=== PATIENT | female | born 1935 | race Hispanic/Latino ===

== ENCOUNTER 2016-10-05 16:31 | Emergency (ER) | payer MEDICARE ==
[2016-10-05 16:40] VITALS: BP 156/65
--- OUTSIDE RECORDS SUMMARY | 2016-10-05 17:15 | XMS REPORT | Continuity of Care Document ---
:1935 Author Organization ([facility]) Address [address] [place] [address] Phone [phone] Care Team Providers Name Role Phone Hao Varma Primary Care Provider [phone] Source Comments This disclosure is being made pursuant to the Care Everywhere program, applicable federal and state laws, and may not contain all informaitonavailable regarding this patient. ([facility]) Active Allergies and Adverse Reactions Allergen Noted Date Severity Reactions Comments Acetaminophen Pruritus,Dizziness Hydrocodone Pruritus,Dizziness Oxycodone Pruritus,Dizziness Penicillins Urticaria (Hives) Polysaccharide Iron Complex Urticaria (Hives) Tramadol Hcl Pruritus,Nausea & w/o rash. Vomiting,Dizziness Current Medications Prescription Sig. Disp. Refills Start Date End Date Status allopurinol 100 mg tablet take 1 tablet by 10/25/2013 Active oral route 3 times every day levothyroxine 50 mcg TK 1 T PO QD 1 05/13/2016 Active tablet torsemide 20 mg tablet 05/15/2016 Active amLODIPine 10 mg tablet take 1 tablet by 10/25/2013 Active oral route every day glimepiride 4 mg tablet take 1 tablet by 10/25/2013 Active ORAL route every day hydrALAZINE 25 mg tablet TK 1 T PO TID 5 05/19/2016 Active Active Problems Problem Noted Date Type II or unspecified type diabetes mellitus without mention of 07/19/2016 complication, not stated as uncontrolled Renal failure 07/19/2016 Rheumatoid arthritis 07/19/2016 Thyroid disease 07/19/2016 Essential hypertension 07/19/2016 Pain in joint, lower leg 10/10/2007 Pain in joint, multiple sites 10/05/2007 Most Recent Encounters Date Type Specialty Providers Description 07/15/2016 Hospital Encounter Radiology Robin Christianson Y, Dx: Hip pain, MD bilateral 07/15/2016 Office Visit Orthopaedic Imtiaz Leyva, Dx: Hip pain, bilateral (Primary Dx) Immunizations Name Dates Previously Given Next Due Influenza, unspecified 06/09/2007 Pneumococcal, unspecified 06/09/2006 Social History Tobacco Use Types Packs/Day Years Used Date Never Smoker Smokeless Tobacco: Never Used Last Filed Vital Signs Vital Sign Reading Time Taken Blood Pressure 150/60 12/28/2007 10:16 AM CDT Pulse 60 12/28/2007 10:16 AM CDT Temperature 35.9 C (96.6 F) 07/15/2016 12:23 PM [employer] Respiratory Rate - - Height 1.524 m (5') 07/15/2016 12:23 PM [employer] Weight 86.696 kg (191 lb 2.1 oz) 12/28/2007 10:16 AM CDT Body Mass Index 37.33 12/28/2007 10:16 AM CDT Oxygen Saturation - - Plan of Care Health Maintenance Due Date Last Done Comments Hepatitis B Vaccine (1 of 3 - Primary Series) 1935 Tdap Vaccine 1946 DIABETIC: Cholesterol 10/25/1951 Diabetic: Hdl 10/25/1951 DIABETIC: Hemoglobin A1C 10/25/1951 Diabetic: Ldl 10/25/1951 DIABETIC: Microalbumin 10/25/1951 DIABETIC: Triglycerides 10/25/1951 Td Vaccine 10/25/1951 Colonoscopy 1983 Zoster Vaccine 1993 Osteoporosis Screening (DXA Bone Density) 1998 Pneumococcal Vaccine (1 of 2 - PCV13) 1998 Influenza Vaccine: Seasonal (#1) 03/09/2016 06/09/2007 DIABETIC: Foot Exam 07/19/2016 DIABETIC: Retinal Eye Exam 07/19/2016 Results from Last 3 Months PELVIS LOW AP, HIP AP,LAT& LAUEN BILAT (07/15/2016 12:18 PM) Narrative Procedure: PELVIS LOW AP, HIP AP,LAT & LAUEN BILAT Clinical Indication: Bilateral hip pain Comparison: None. Findings / Impression: Severe uniform joint space narrowing of the right hip with osteophyte formation possibly secondary to inflammatory arthritis of the right hip. Severe superior joint space narrowing of the left hip, bone on bone, with osteophyte formation. Degenerative changes of the bilateral SI joints and pubic symphysis. Vascular calcifications. Procedure Note Mauricio, Incoming Imaging Results - Davina Jul 16, 2016 8:19 AM [employer] Procedure: PELVIS LOW AP, HIP AP,LAT & LAUEN BILAT Clinical Indication: Bilateral hip pain Comparison: None. Findings / Impression: Severe uniform joint space narrowing of the right hip with osteophyte formation possibly secondary to inflammatory arthritis of the right hip. Severe superior joint space narrowing of the left hip, bone on bone, with osteophyte formation. Degenerative changes of the bilateral SI joints and pubic symphysis. Vascular calcifications.
--- NOTE | 2016-10-05 17:28 | ERNOTE ---
Medical Problem HPI - Narrative Date of Service: 10/05/16 - General Chief Complaint: General Assessment Time Seen by Provider: 10/05/16 17:06 Source: patient, RN notes reviewed, old records Exam Limitations: no limitations - Immun/Allergies/Home Medications Immunizations: IMMUNIZATION HX Immunizations Up to Date Yes History of Influenza Vaccine Yes Hx Pneumococcal Vaccination Yes Allergies/Adverse Reactions: Allergies milk Allergy (Mild, Verified 10/05/16 16:40) Nausea nausea, diarrhea, abd pain erythromycin base [Erythromycin Base] Allergy (Verified 10/05/16 16:40) iron Allergy (Verified 10/05/16 16:40) morphine Allergy (Verified 10/05/16 16:40) Penicillins Allergy (Verified 10/05/16 16:40) cholesterol meds Allergy (Uncoded 10/05/16 16:40) Home Medications: HOME MEDICATIONS Allopurinol [Zyloprim] 100 mg PO BID 05/05/14 [Last Taken 05/05/16] Glimepiride [Amaryl] 4 mg PO BID 05/05/14 [Last Taken 05/05/16] amLODIPine BESYLATE [Norvasc] 10 mg PO DAILY 05/05/14 [Last Taken 05/05/16] Torsemide [Demadex] 60 mg PO DAILY 04/30/16 [Last Taken 05/05/16] Acetaminophen [Tylenol] 650 mg PO Q6H PRN #0 tablet 05/01/16 [Last Taken Unknown ] Hydralazine HCl 25 mg PO TID 05/05/16 [Last Taken 05/05/16] Bumetanide [Bumex] 1 mg PO DAILY 10/05/16 [Last Taken Unknown] Levothyroxine Sodium [Levo-T] 50 mcg PO DAILY 10/05/16 [Last Taken Unknown] Metolazone [Zaroxolyn] 2.5 mg PO DAILY 10/05/16 [Last Taken Unknown] - History of Present History Narrative: 80 y/o female to ED by private vehicle for increased edema in her lower legs, feet and hands. She contacted her PCP's office and was instructed to come here because he is out of the office today. She denies any chest pain or breathing difficulties. She has chronic renal disease and is already taking 3 different diuretics. Date (Duration): 10/05/16 Review of Systems - Review of Systems Constitutional: Absent: fever, chills, weakness, fatigue, malaise EYE: Present: no symptoms reported ENT: Present: no symptoms reported Respiratory: Absent: shortness of breath, cough Cardiology: Present: edema. Absent: chest pain, palpitations, syncope Gastrointestinal/Abdominal: Present: no symptoms reported Genitourinary: Absent: decreased urinary output Musculoskeletal: Present: muscle pain, joint pain Skin: Absent: lesions, change in color Neurological: Absent: headache, dizziness/light-headedness Endocrine: Present: no symptoms reported Hematologic/Lymphatic: Present: no symptoms reported Psych: Present: no symptoms reported - Patient's Past Medical History Patient History - Medical: Anemia, Arthritis, Diabetes Type 2, Hypothyroidism, Obesity, Osteoarthritis, Renal Disease, Renal Failure Patient History - Cardiac/Respiratory: Hypertension, Hyperlipidemia Patient History - Cancer: No Hx of Cancer Patient History - Surgical Procedures: Cholecystectomy Patient History - Other: None LMP (females 10-50): Menopausal - Family History Father Family History - Medical: , Diabetes Type 2 Family History - Cardiac/Respiratory: No pertinent hx Mother Family History - Medical: , No pertinent hx Family History - Cardiac/Respiratory: No pertinent hx - Social History Living Situations: home Abuse History: No History of abuse Psych History: No pertinent hx Smoking Status: Former smoker Alcohol Use: none Drug Use: none - Immunizations Immunizations Up to Date: Yes Hx Pneumococcal Vaccination: Yes History of Influenza Vaccine: Yes Physical Exam - Physical Exam General Appearance: Present: wd/wn, alert, no apparent distress, obese Neck: Present: normal inspection, nontender, supple Respiratory: Present: no respiratory distress, normal breath sounds, no accessory muscle use, lungs clear Cardiovascular/Chest: Present: regular rate, rhythm, normal peripheral pulses, systolic murmur Extremity Exam: Present: non-tender, pedal edema, extremity edema - hands, feet and lower legs with significant edema - nontender to palpation, no redness or heat present Neurological Exam: Present: alert, oriented, normal mood/affect Skin Exam: Present: normal color, warm/dry ED Progress - Vital Signs Patient's Vital Signs:: I have reviewed the patient's vital signs. Vital Signs: Vital Signs 10/05/16 16:35 Temperature 35.7 C L Pulse Rate 69 Respiratory 12 Rate Blood Pressure 156/65 O2 Sat by Pulse 98 Oximetry - Progress/Reassessment Chief Complaint: General Assessment Progress:: Unchanged Plan - Plan Plan: Patient instructed to contact her PCP tomorrow regarding her edema as she is currently not experiencing any other symptoms that would warrant treating this in the ED Departure - Departure Clinical Impression: Edema extremities Disposition: Home Follow Up Needed Condition: Stable Instructions: Edema, [id number] Additional Instructions: Continue your current medications Contact Dr. Varma tomorrow Referrals: Hao Varma MD [Primary Care Provider] -
== END 2016-10-05 17:15 | disposition home or self-care (01) ==
LOC: ER 16:31
DX: R60.0 Localized edema (principal); I10 Essential (primary) hypertension; N28.9 Disorder of kidney and ureter, unspecified; E11.9 Type 2 diabetes mellitus without complications

== ENCOUNTER 2016-10-07 11:30 | Observation (INO) | payer MEDICARE ==
--- OUTSIDE RECORDS SUMMARY | 2016-10-07 11:37 | XMS REPORT | Continuity of Care Document ---
:1935 Author Organization [facility] ([facility]) Address [address] [place] [address] Phone [phone] Care Team Providers Name Role Phone Hao Varma Primary Care Provider [phone] Source Comments This disclosure is being made pursuant to the Care Everywhere program, applicable federal and state laws, and may not contain all informaitonavailable regarding this patient.[facility] ([facility]) Active Allergies and Adverse Reactions Allergen Noted [...] 35.9 C (96.6 F) 07/15/2016 12:23 PM 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
[2016-10-07] MEDS ORDERED: ACETAMINOPHEN 325 MG TABLET PO PRN (11:51)
[2016-10-07 12:19] LABS: Hematocrit 36.8 % (37.0-47.0); Hemoglobin 11.9 gm/dL (12.5-16.0); Mean Cell Volume 97.6 fl (78-100); Mean Corpuscular Hemoglobin 31.6 pg (27-31); Mean Corpuscular Hgb Conc 32.3 g/dl (32-36); Mean Platelet Volume 12.7 fl (6.0-9.5); Neutrophil # 2.8 K/mm3 (1.3-6.0); Neutrophil % 50.6 % (42-75.0); Platelet Count 166 K/mm3 (150-450); Red Blood Count 3.77 M/mm3 (4.2-5.4); Red Cell Distribution Width 14.7 % (11.5-14.0); White Blood Count 5.6 K/mm3 (4.0-10.5)
[2016-10-07] MEDS ORDERED: FUROSEMIDE 10 MG/ML VIAL IV ONE (12:30)
[2016-10-07 12:33] LABS: Troponin I Less than 0.017 ng/ml (0.00-0.10)
[2016-10-07 12:38] LABS: ALT 17 U/L (19-67); AST 22 U/L (0-48); Albumin * 2.1 gm/dl (3.4-5.0); Alkaline Phosphatase * 82 U/L (50-170); Anion Gap 15.1 mmol/L (6.8-13.8); BNP * 267 pg/mL (5-550); BUN/Creatinine Ratio 15.3 (9.0-21.6); Bilirubin, Total 0.2 mg/dL (0.0-1.1); Blood Urea Nitrogen 40 mg/dL (3-23); CK Total * 52 U/L (0-259); Ca. Corrected For Albumin 9.8 mg/dL (8.4-10.2); Calcium * 8.6 mg/dL (7.9-10.9); Carbon Dioxide 22.7 mmol/L (24-32.6); Chloride 105 mmol/L (97-106); Glucose * 120 mg/dL (70-110); Potassium 3.8 mmol/L (3.4-4.6); Sodium 139 mmol/L (132-142); Total Protein 6.1 gm/dL (6.2-8.2)
[2016-10-07 13:07] LABS: TSH * 17.086 uIU/mL (0.358-3.74)
[2016-10-07] MEDS: FUROSEMIDE 80 MG TABLET PO SCH (13:44)
[2016-10-07] MEDS: hydrALAZINE HCL 25 MG TABLET PO SCH ×2 (13:44→20:31)
[2016-10-07 14:16] LABS: Urine Bilirubin Negative (NEGATIVE); Urine Ketone Negative (NEGATIVE); Urine Nitrite Negative (NEGATIVE); Urine Protein >=300 mg/dL (NEGATIVE); Urine Urobilinogen Normal (NORMAL)
[2016-10-07 14:26] LABS: Urine Appearance Clear; Urine Bacteria None Seen; Urine Blood 10 /ul (NEGATIVE); Urine Color Pale Yellow; Urine RBC None Seen /hpf (0-5); Urine WBC None Seen /hpf (0-5)
[2016-10-07] MEDS: GLIMEPIRIDE 4 MG TABLET PO SCH (18:01)
[2016-10-07] MEDS: ALLOPURINOL 100 MG TABLET PO SCH (20:31)
[2016-10-08] MEDS: hydrALAZINE HCL 25 MG TABLET PO SCH ×2 (04:37→13:39)
[2016-10-08 06:23] LABS: Albumin * 1.8 gm/dl (3.4-5.0); Anion Gap 12.7 mmol/L (6.8-13.8); Bilirubin, Total 0.2 mg/dL (0.0-1.1); Ca. Corrected For Albumin 9.6 mg/dL (8.4-10.2); Calcium * 8.2 mg/dL (7.9-10.9); Potassium 3.7 mmol/L (3.4-4.6); Total Protein 5.6 gm/dL (6.2-8.2)
[2016-10-08] MEDS ORDERED: LEVOTHYROXINE SODIUM 100 MCG TABLET PO SCH (07:00)
[2016-10-08] MEDS ORDERED: LEVOTHYROXINE SODIUM 50 MCG TABLET PO SCH (07:00)
[2016-10-08] MEDS: GLIMEPIRIDE 4 MG TABLET PO SCH ×2 (07:28→18:01)
[2016-10-08] MEDS: FUROSEMIDE 80 MG TABLET PO SCH (08:09)
[2016-10-08] MEDS: ALLOPURINOL 100 MG TABLET PO SCH (08:10)
[2016-10-08] MEDS ORDERED: ALBUMIN HUMAN 12.5 G in Premix Bag 1 BAG IV ONE (08:43)
[2016-10-08] MEDS ORDERED: FUROSEMIDE 10 MG/ML VIAL IV ONE (08:44)
[2016-10-08 08:46] LABS: Hematocrit 34.7 % (37.0-47.0); Hemoglobin 11.5 gm/dL (12.5-16.0); Mean Cell Volume 95.6 fl (78-100); Mean Corpuscular Hemoglobin 31.7 pg (27-31); Mean Corpuscular Hgb Conc 33.1 g/dl (32-36); Neutrophil # 3.3 K/mm3 (1.3-6.0); Neutrophil % 55.2 % (42-75.0); Platelet Count 255 K/mm3 (150-450); Red Blood Count 3.63 M/mm3 (4.2-5.4); Red Cell Distribution Width 14.5 % (11.5-14.0); White Blood Count 6.1 K/mm3 (4.0-10.5)
[2016-10-08] MEDS ORDERED: METOLAZONE 5 MG TABLET PO SCH (09:00)
[2016-10-08] MEDS ORDERED: METOLAZONE 2.5 MG TABLET PO SCH (09:00)
[2016-10-08] MEDS ORDERED: TORSEMIDE 20 MG TABLET PO SCH (09:00)
[2016-10-08] MEDS ORDERED: amLODIPine BESYLATE 10 MG TABLET PO SCH (09:00)
--- NOTE | 2016-10-08 09:02 | DS ---
(1) CKD (chronic kidney disease) Problem: Chronic Qualifiers: Chronic kidney disease stage: stage 4 (severe) Qualified Code(s): N18.4 - Chronic kidney disease, stage 4 (severe) (2) Fibromyalgia Problem: Chronic (3) Hypothyroidism Problem: Chronic (4) Hypoalbuminemia Problem: Chronic (5) Diabetes mellitus type 2 in obese Problem: Chronic Description of Stay: 80-year-old [place] descent female was admitted because of generalized swelling involving mostly on her legs. She is known nephrotic syndrome with massive proteinuria. Chest x-ray and Bnp did not show CHF.she was given IV Lasix and metolazone she diuresed well and lost more than 5 pounds over night. I will give her some IV albumin and give another dose of IV Lasix and then she will be discharged and follow up in 1 week. She developed low-grade fever 37.9 I will obtain blood culture and urine tests and this will be treated accordingly Procedures Performed: none Discharge Disposition: Home self care Disposition: Home self-care Condition: Undetermined Discharge Activity: Activity as tolerated Discharge Diet: Consistent carbs Referrals: Hao Varma MD [Primary Care Provider] - Additional Patient Instructions (free text): Follow-up with Dr. Varma in 1 week Prescriptions (Any new or edited meds): Furosemide [Lasix] 80 mg PO DAILY #90 tablet Levothyroxine Sodium [Synthroid] 100 mcg PO DAILY@0700 #90 tablet Complete Home Medications List: Complete Home Medication List: Allopurinol [Zyloprim] 100 mg PO BID 05/05/14 Glimepiride [Amaryl] 4 mg PO DAILY 05/05/14 amLODIPine BESYLATE [Norvasc] 10 mg PO DAILY 05/05/14 Acetaminophen [Tylenol] 650 mg PO Q6H PRN #0 tablet 05/01/16 Hydralazine HCl 25 mg PO TID 05/05/16 Levothyroxine Sodium [Levo-T] 75 mcg PO DAILY 10/05/16 Metolazone [Zaroxolyn] 2.5 mg PO 2XW 10/05/16 Allopurinol [Zyloprim] 100 mg PO BID tablet 10/08/16 Furosemide [Lasix] 80 mg PO DAILY #90 tablet 10/08/16 Glimepiride [Amaryl] 4 mg PO BIDAC tablet 10/08/16 Levothyroxine Sodium [Synthroid] 100 mcg PO DAILY@0700 #90 tablet 10/08/16 Metolazone [Zaroxolyn] 5 mg PO DAILY #0 tablet 10/08/16
[2016-10-08 11:10] LABS: Urine Bilirubin Negative (NEGATIVE); Urine Blood 50 /ul (NEGATIVE); Urine Ketone Negative (NEGATIVE); Urine Nitrite Negative (NEGATIVE); Urine Protein >=300 mg/dL (NEGATIVE); Urine Urobilinogen Normal (NORMAL)
[2016-10-08] MEDS ORDERED: CLONIDINE HCL 0.2 MG TABLET PO STA (11:12)
[2016-10-08] MEDS ORDERED: ENALAPRIL MALEATE 20 MG TABLET PO SCH (11:15)
[2016-10-08 11:17] LABS: Urine Appearance Clear; Urine Bacteria TRACE; Urine Color Yellow
[2016-10-08 13:53] VITALS: BP 171/50
[2016-10-08 22:08] LABS: Total Protein Urine 344.1 mg/dL (0-12)
[2016-10-10 23:44] LABS: Alpha-1-Globulin 0.3 g/dL (0.2-0.3); Gamma Globulins 0.3 g/dL (0.8-1.7); Lambda Light Chain 56 mg/dL (91-240)
== END 2016-10-08 20:10 | disposition home or self-care (01) ==
LOC: MS 11:30
PROVIDERS: ADMIT Internal Medicine; ATTEND Internal Medicine
DX: I12.9 Hypertensive chronic kidney disease with stage 1 through stage 4 chronic kidney disease, or unspecified chronic kidney disease (principal); R60.1 Generalized edema; E03.8 Other specified hypothyroidism; I50.9 Heart failure, unspecified; M79.7 Fibromyalgia; E88.09 Other disorders of plasma-protein metabolism, not elsewhere classified; E11.9 Type 2 diabetes mellitus without complications; N04.9 Nephrotic syndrome with unspecified morphologic changes; N18.4 Chronic kidney disease, stage 4 (severe)
CPT/HCPCS: 36415; 71010; 71020; 80053; 81001; 82550; 82553; 83880; 83883; 84156; 84443; 84484; 85025; 86255; 87040; 93005; 96365; 96366; 96375; 97161; 97165; G0378; G0379; G8978; G8979; G8980; G8987; G8988; G8989

== ENCOUNTER 2016-12-30 23:13 | Emergency (ER) | payer MEDICARE ==
--- NOTE | 2016-12-30 23:29 | ERNOTE ---
Chest Pain/Cardiac HPI Chief Complaint: Palpitations Time Seen by Provider: 12/30/16 23:22 Source: patient, family Exam Limitations: no limitations Immunizations: IMMUNIZATION HX Immunizations Up to Date Yes History of Influenza Vaccine No Hx Pneumococcal Vaccination No Allergies/Adverse Reactions: Allergies milk Allergy (Mild, Verified 12/30/16 23:25) Nausea nausea, diarrhea, abd pain erythromycin base [Erythromycin Base] Allergy (Verified 12/30/16 23:25) iron Allergy (Verified 12/30/16 23:25) morphine Allergy (Verified 12/30/16 23:25) Penicillins Allergy (Verified 12/30/16 23:25) cholesterol meds Allergy (Uncoded 12/30/16 23:25) Home Medications: HOME MEDICATIONS hydrALAZINE HCL [Hydralazine HCl] 50 mg PO TID 05/05/16 [Last Taken 05/05/16] Levothyroxine Sodium [Levo-T] 150 mcg PO DAILY 10/05/16 [Last Taken Unknown] Allopurinol [Zyloprim] 100 mg PO BID tablet 10/08/16 [Last Taken Unknown] Calcitriol [Rocaltrol] 0.25 mcg PO DAILY 12/30/16 [Last Taken Unknown] Cholecalciferol [Vitamin D] 4,000 unit PO DAILY 12/30/16 [Last Taken Unknown] Furosemide [Lasix] 80 mg PO DAILY 12/30/16 [Last Taken Unknown] Glimepiride [Amaryl] 4 mg PO DAILY 12/30/16 [Last Taken Unknown] Levothyroxine Sodium [Synthroid] 100 mcg PO DAILY 12/30/16 [Last Taken Unknown] Loratadine [Claritin] 10 mg PO DAILY 12/30/16 [Last Taken Unknown] Narrative: Pt states she had onset of pounding in her chest earlier this evening. Denies chest pain Timing: constant, getting worse Severity/Quality: moderate Location: left chest Activities at Onset: none Review of Systems - Review of Systems Constitutional: Present: fatigue EYE: Present: no symptoms reported ENT: Present: no symptoms reported Respiratory: Absent: shortness of breath Cardiology: Absent: chest pain Gastrointestinal/Abdominal: Absent: nausea, vomiting Genitourinary: Present: no symptoms reported Musculoskeletal: Present: no symptoms reported Skin: Present: no symptoms reported Neurological: Present: no symptoms reported Endocrine: Present: no symptoms reported Hematologic/Lymphatic: Present: no symptoms reported Psych: Present: no symptoms reported - Patient's Past Medical History Patient History - Medical: Anemia, Arthritis, Diabetes Type 2, Hypothyroidism, Obesity, Osteoarthritis, Renal Disease, Renal Failure Patient History - Cardiac/Respiratory: Atrial Fibrillation, CHF, Hypertension, Hyperlipidemia Patient History - Cancer: No Hx of Cancer Patient History - Surgical Procedures: Cholecystectomy Patient History - Other: None - Family History Father Family History - Medical: , Diabetes Type 2 Family History - Cardiac/Respiratory: No pertinent hx Mother Family History - Medical: , No pertinent hx Family History - Cardiac/Respiratory: No pertinent hx - Social History Living Situations: home Abuse History: No History of abuse Psych History: No pertinent hx Smoking Status: Never smoker Alcohol Use: none Drug Use: none - Immunizations Immunizations Up to Date: Yes Hx Pneumococcal Vaccination: No History of Influenza Vaccine: No Physical Exam - Physical Exam General Appearance: Present: wd/wn, alert, mild distress Ears, Nose, Throat: Present: normal ENT inspection Neck: Present: normal inspection, nontender, supple Respiratory: Present: no respiratory distress, normal breath sounds, no accessory muscle use, lungs clear Cardiovascular/Chest: Present: regular rate, rhythm, no murmur, normal peripheral pulses Gastrointestinal/Abdominal: Present: normal bowel sounds, nontender, nondistended, soft Extremity Exam: Present: normal inspection, non-tender, normal range of motion, no edema Neurological Exam: Present: alert, oriented, normal mood/affect Skin Exam: Present: normal color, warm/dry Lymphatic Exam: Present: no adenopathy ED Progress - Results and Orders Patient's Lab Results:: I have reviewed the patient's lab results. Results and Orders: Laboratory Tests 12/30/16 12/30/16 23:28 23:28 WBC 14.6 H Hgb 10.4 L Hct 30.8 L Plt Count 301 Sodium 138 Potassium 4.0 Chloride 101 Carbon Dioxide 20.0 L Anion Gap 21.0 H BUN 82 H Creatinine 2.85 H D Est GFR (Non-Af Amer) 17 L BUN/Creatinine Ratio 28.8 H Random Glucose 226 H Calcium 8.5 Total Bilirubin 0.3 AST 36 ALT 20 Alkaline Phosphatase 92 Troponin I 0.048 Total Protein 6.5 Albumin 2.7 L Laboratory Tests 12/31/16 12/31/16 01:26 03:15 Troponin I 0.066 0.057 - Vital Signs Patient's Vital Signs:: I have reviewed the patient's vital signs. Vital Signs: Vital Signs 12/30/16 23:18 Temperature 36.7 C Pulse Rate 84 Respiratory 13 Rate Blood Pressure 220/73 O2 Sat by Pulse 96 Oximetry - EKG EKG: NSR EKG read: Interp. by me EKG Comments: mild lateral ST depression. - X-Ray X-Ray #1 X-Ray: chest Interpretation: Interp. by me X-ray Comments: nothing acute - Progress/Reassessment Chief Complaint: Palpitations Progress:: Improved Progress Note-Subjective: 12/31/16 01:26 Discussed results with patient, non-specific EKG changes and troponin that his not completely negative. I explained repeat EKG and Ti and the reasons why I ordered them. Pt would like to go home as she is feeling better. I told her we would consider sending her home after looking at the EKG and Ti. 12/31/16 03:00 EKG and Ti reviewed. EKG showed decreased ST depression but some isolated ST elevation in V1. Spoke with patient and she agrees to stay for OBS. Spoke with [facility] and she refuses to admit the patient. Ordered repeat troponin #2 12/31/16 04:00 Troponin decreasing, discussed discharge with patient and family. Encouraged her to see her PCP about her BP to make sure it is staying controlled. Departure - Departure Clinical Impression: Palpitations Hypertension Qualifiers: Hypertension type: essential hypertension Qualified Code(s): I10 - Essential ( primary) hypertension Disposition: Home Follow Up Needed Condition: Good Instructions: Hypertension, [id number] Additional Instructions: See Dr. Varma for further follow up on your blood pressure. Return to ER as needed Referrals: Hao Varma MD [Primary Care Provider] -
[2016-12-30 23:34] LABS: Hematocrit 30.8 % (37.0-47.0); Hemoglobin 10.4 gm/dL (12.5-16.0); Mean Corpuscular Hemoglobin 32.4 pg (27-31); Mean Corpuscular Hgb Conc 33.8 g/dl (32-36); Mean Platelet Volume 12.3 fl (6.0-9.5); Neutrophil # 9.8 K/mm3 (1.3-6.0); Neutrophil % 66.6 % (42-75.0); Platelet Count 301 K/mm3 (150-450); Red Blood Count 3.21 M/mm3 (4.2-5.4); Red Cell Distribution Width 14.5 % (11.5-14.0); White Blood Count 14.6 K/mm3 (4.0-10.5)
[2016-12-30 23:54] LABS: Albumin * 2.7 gm/dl (3.4-5.0); BUN/Creatinine Ratio 28.8 (9.0-21.6); Bilirubin, Total 0.3 mg/dL (0.0-1.1); Ca. Corrected For Albumin 9.2 mg/dL (8.4-10.2); Calcium * 8.5 mg/dL (7.9-10.9); Total Protein 6.5 gm/dL (6.2-8.2); Troponin I 0.048 ng/ml (0.00-0.10)
[2016-12-31] MEDS ORDERED: hydrALAZINE HCL 20 MG/ML VIAL IV ONE (00:17)
[2016-12-31 04:34] VITALS: BP 180/58
== END 2016-12-31 04:31 | disposition home or self-care (01) ==
LOC: ER 23:13
DX: R00.2 Palpitations (principal); I10 Essential (primary) hypertension; E11.9 Type 2 diabetes mellitus without complications; E03.9 Hypothyroidism, unspecified; Z79.01 Long term (current) use of anticoagulants; I50.9 Heart failure, unspecified; E78.5 Hyperlipidemia, unspecified

== ENCOUNTER 2017-01-02 11:45 | Emergency (ER) | payer MEDICARE ==
[2017-01-02 12:25] LABS: Hematocrit 29.3 % (37.0-47.0); Hemoglobin 9.8 gm/dL (12.5-16.0); Mean Cell Volume 97.3 fl (78-100); Mean Corpuscular Hemoglobin 32.6 pg (27-31); Mean Corpuscular Hgb Conc 33.4 g/dl (32-36); Mean Platelet Volume 11.5 fl (6.0-9.5); Neutrophil # 5.1 K/mm3 (1.3-6.0); Neutrophil % 57.1 % (42-75.0); Platelet Count 241 K/mm3 (150-450); Red Blood Count 3.01 M/mm3 (4.2-5.4); Red Cell Distribution Width 14.6 % (11.5-14.0)
--- OUTSIDE RECORDS SUMMARY | 2017-01-02 12:25 | XMS REPORT | Continuity of Care Document ---
:1935 Author Organization [facility] ([facility]) Address [address] [place] [address] Phone [phone] Care Team Providers Name Role Phone Chichi Varmao Primary Care Provider [phone] Source Comments This disclosure is being made pursuant to the Care Everywhere program, applicable federal and state laws, and may not contain all informaitonavailable regarding this patient.[facility] ([facility]) Active Allergies and Adverse Reactions [...] 10/10/2007 Pain in joint, multiple sites 10/05/2007 Immunizations Name Dates Previously Given Next Due Influenza, unspecified 06/09/2007 Pneumococcal, unspecified 06/09/2006 Social History Tobacco Use Types Packs/Day Years Used Date Never Smoker Smokeless Tobacco: Never Used Last Filed Vital Signs Vital Sign Reading Time Taken Blood Pressure 150/60 12/28/2007 10:16 AM CDT Pulse 60 12/28/2007 10:16 AM CDT Temperature 35.9 C (96.6 F) 07/15/2016 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
[2017-01-02] MEDS ORDERED: hydrALAZINE HCL 20 MG/ML VIAL IV ONE (12:39)
[2017-01-02 12:42] LABS: Troponin I 0.025 ng/ml (0.00-0.10)
[2017-01-02 12:43] LABS: Albumin * 2.6 gm/dl (3.4-5.0); Anion Gap 16.4 mmol/L (6.8-13.8); BUN/Creatinine Ratio 25.4 (9.0-21.6); Bilirubin, Total 0.2 mg/dL (0.0-1.1); CRP 2.3 mg/dL (0.0-0.9); Ca. Corrected For Albumin 9.4 mg/dL (8.4-10.2); Calcium * 8.6 mg/dL (7.9-10.9); Carbon Dioxide 23.9 mmol/L (24-32.6); Potassium 3.3 mmol/L (3.4-4.6)
[2017-01-02] MEDS ORDERED: hydrALAZINE HCL 20 MG/ML VIAL ONE (12:49)
--- NOTE | 2017-01-02 13:37 | ERNOTE ---
Dyspnea - Date Date of Service: 01/02/17 - General Presenting Symptoms: shortness of breath, difficulty of breathing, other - p; qatentn c/o tachycardia and palpitations Time Seen by Provider: 01/02/17 12:17 Source: patient, family Exam Limitations: no limitations - Immun/Allergies/Home Medications Immunizations: IMMUNIZATION HX Immunizations Up to Date Yes History of Influenza Vaccine Yes Hx Pneumococcal Vaccination Yes Allergies/Adverse Reactions: Allergies milk Allergy (Mild, Verified 12/30/16 23:25) Nausea nausea, diarrhea, abd pain erythromycin base [Erythromycin Base] Allergy (Verified 12/30/16 23:25) iron Allergy (Verified 12/30/16 23:25) morphine Allergy (Verified 12/30/16 23:25) Penicillins Allergy (Verified 12/30/16 23:25) cholesterol meds Allergy (Uncoded 12/30/16 23:25) Home Medications: HOME MEDICATIONS hydrALAZINE HCL [Hydralazine HCl] 50 mg PO TID 05/05/16 [Last Taken 05/05/16] Levothyroxine Sodium [Levo-T] 150 mcg PO DAILY 10/05/16 [Last Taken Unknown] Allopurinol [Zyloprim] 100 mg PO BID tablet 10/08/16 [Last Taken Unknown] Calcitriol [Rocaltrol] 0.25 mcg PO DAILY 12/30/16 [Last Taken Unknown] Cholecalciferol [Vitamin D] 4,000 unit PO DAILY 12/30/16 [Last Taken Unknown] Furosemide [Lasix] 80 mg PO DAILY 12/30/16 [Last Taken Unknown] Glimepiride [Amaryl] 4 mg PO DAILY 12/30/16 [Last Taken Unknown] Levothyroxine Sodium [Synthroid] 100 mcg PO DAILY 12/30/16 [Last Taken Unknown] Loratadine [Claritin] 10 mg PO DAILY 12/30/16 [Last Taken Unknown] - History of Present Illness Severity: moderate Treatment REMOTE SENSING ADVISOR: none Initiating event: Reports: unknown Frequency of episodes: Reports: frequent episodes Modifying Factors - (Improves): Reports: activity Modifying Factors (Worsens): Reports: other Associated Symptoms-Dyspnea: Reports: palpitations, dizziness, lightheadedness, weakness Prior Treatment: Reports: recently seen, treated by physician Review of Systems - Review of Systems Constitutional: Present: diaphoresis, weakness, fatigue, malaise EYE: Present: no symptoms reported ENT: Present: no symptoms reported Respiratory: Present: See HPI, shortness of breath, orthopnea, wheezing Cardiology: Present: See HPI, palpitations Gastrointestinal/Abdominal: Present: no symptoms reported Genitourinary: Present: no symptoms reported Musculoskeletal: Present: no symptoms reported Skin: Present: no symptoms reported Neurological: Present: no symptoms reported Endocrine: Present: no symptoms reported Hematologic/Lymphatic: Present: no symptoms reported Psych: Present: no symptoms reported All Other Systems: All systems neg except as marked - Patient's Past Medical History Patient History - Medical: Anemia, Arthritis, Diabetes Type 2, Hypothyroidism, Obesity, Osteoarthritis, Renal Disease, Renal Failure Patient History - Cardiac/Respiratory: Atrial Fibrillation, CHF, Hypertension, Hyperlipidemia Patient History - Cancer: No Hx of Cancer Patient History - Surgical Procedures: Cholecystectomy Patient History - Other: None LMP (females 10-50): Menopausal - Family History Father Family History - Medical: , Diabetes Type 2 Family History - Cardiac/Respiratory: No pertinent hx Mother Family History - Medical: , No pertinent hx Family History - Cardiac/Respiratory: No pertinent hx - Social History Living Situations: home Abuse History: No History of abuse Psych History: No pertinent hx Smoking Status: Former smoker Have you smoked in the past 12 months: No Alcohol Use: none Drug Use: none - Immunizations Immunizations Up to Date: Yes Hx Pneumococcal Vaccination: Yes History of Influenza Vaccine: Yes Physical Exam - Physical Exam General Appearance: Present: mild distress, anxious Eye Exam: Normal inspection: bilateral, PERRL: bilateral, EOMI: bilateral Ears, Nose, Throat: Present: normal ENT inspection Neck: Present: normal inspection, nontender Respiratory: Present: no accessory muscle use, chest nontender, decreased breath sounds Cardiovascular/Chest: Present: tachycardia Peripheral Pulses: N=norm/S=strong/W=weak/B=bound/A=absent: Carotid (R): Normal , Carotid (L): Normal, Radial (R): Normal, Radial (L): Normal, Femoral (R): Normal, Femoral (L): Normal, Dorsalis-pedis (R): Normal, Dorsalis-pedis (L): Normal Gastrointestinal/Abdominal: Present: normal bowel sounds, nontender, nondistended, soft, no organomegaly Back Exam: Present: normal inspection, normal range of motion, no CVA tenderness , no vertebral tenderness Extremity Exam: Present: normal inspection, normal range of motion, pedal edema Neurological Exam: Present: alert, oriented, normal mood/affect, no motor/ sensory deficits DTR: N=norm/NB=norm/brisk/A=abs/DD=dull/dimin/HC=hyperactive: Bicep (R): Normal , Bicep (L): Normal, Tricep (R): Normal, Tricep (L): Normal, Knee (R): Normal, Knee (L): Normal, Ankle (R): Normal, Ankle (L): Normal Skin Exam: Present: normal color, warm/dry Lymphatic Exam: Present: no adenopathy ED Progress - Results and Orders Patient's Lab Results:: I have reviewed the patient's lab results. - Vital Signs Patient's Vital Signs:: I have reviewed the patient's vital signs. Vital Signs: Vital Signs 01/02/17 01/02/17 01/02/17 11:54 11:59 12:36 Temperature 36.9 C Pulse Rate 86 78 80 Respiratory 24 H 20 Rate Blood Pressure 217/70 222/74 O2 Sat by Pulse 99 99 Oximetry 01/02/17 13:14 Temperature Pulse Rate 76 Respiratory 20 Rate Blood Pressure 212/118 O2 Sat by Pulse 97 Oximetry - EKG EKG: other - sinus tadhycardia - Progress/Reassessment Chief Complaint: Dyspnea Progress:: Unchanged - Transfer of Care Expected Disposition: Transfer Additional Notes: case discussed with [facility] el[facility]ud [place] [facility] accepts patient for transfer, unable to obtain vq for evaluation of pe Departure Clinical Impression: Dyspnea on exertion - Departure Disposition: [facility] Condition: Serious Referrals: Hao Varma MD [Primary Care Provider] -
[2017-01-02 18:02] VITALS: BP 195/58
== END 2017-01-02 16:30 | disposition short-term general hospital (02) ==
LOC: ER 11:45
DX: R06.00 Dyspnea, unspecified (principal)

== ENCOUNTER 2017-01-20 18:14 | Emergency (ER) | payer MEDICARE ==
--- OUTSIDE RECORDS SUMMARY | 2017-01-20 18:53 | XMS REPORT | Continuity of Care Document ---
:1935 Author Organization [facility] ([facility]) Address [address] [place] [address] Phone [phone] Care Team Providers Name Role Phone Chichi Varmao Primary Care Provider [phone] Source Comments This disclosure is being made pursuant to the Care Everywhere program, applicable federal and state laws, and may not contain all informaitonavailable regarding this patient.[facility] ([facility]) Active Allergies and Adverse Reactions Allergen Noted Date Severity Reactions Comments Acetaminophen Pruritus,Dizziness Hydrocodone Pruritus,Dizziness Oxycodone Pruritus,Dizziness Penicillins Urticaria (Hives) Polysaccharide Iron Complex Urticaria (Hives) Tramadol Hcl Pruritus,Nausea & w/o rash. Vomiting,Dizziness Current Medications Prescription Sig. Disp. Refills Start Date End Date Status glimepiride 4 mg take 1 tablet 10/25/2013 Active tablet by ORAL route every day cholecalciferol Take 4,000 Active (VITAMIN D3) 2,000 Units by unit capsule mouth daily. vitamin B complex Take 1 tablet Active tablet by mouth daily. allopurinol 100 mg Take 100 mg Active tablet by mouth 2 times daily. calcitriol 0.25 mcg Take 0.25 mcg Active capsule by mouth daily. hydrALAZINE 25 mg Take 50 mg by Active tablet mouth 3 times daily. levothyroxine 150 mcg Take 150 mcg Active tablet by mouth every morning before breakfast. amLODIPine 10 mg Take 1 tablet 30 tablet 11 01/06/2017 Active tablet (10 mg total) by mouth daily. apixaban (ELIQUIS) Take 1 tablet 60 tablet 0 01/06/2017 Active 2.5 mg tablet (2.5 mg total) by mouth 2 times daily. allopurinol 100 mg take 1 tablet 10/25/2013 Discontinued tablet by oral route 7 3 times every day levothyroxine 50 mcg TK 1 T PO QD 1 05/13/2016 Discontinued tablet 7 torsemide 20 mg 05/15/2016 Discontinued tablet 7 amLODIPine 10 mg take 1 tablet 10/25/2013 Discontinued tablet by oral route 7 every day hydrALAZINE 25 mg TK 1 T PO TID 5 05/19/2016 Discontinued tablet 7 aspirin 325 mg EC Take 325 mg Discontinued tablet by mouth as 7 needed for Pain. bumetanide 1 mg Take 1 mg by Discontinued tablet mouth daily. 7 Active Problems Problem Noted Date CKD (chronic kidney disease) stage 4, GFR 15-29 ml/min 01/06/2017 Type 2 diabetes mellitus with microalbuminuria, without long-term current use of insulin Pulmonary embolus 01/02/2017 Type II or unspecified type diabetes mellitus without mention of 07/19/2016 complication, not stated as uncontrolled Renal failure 07/19/2016 Rheumatoid arthritis 07/19/2016 Thyroid disease 07/19/2016 Essential hypertension 07/19/2016 Pain in joint, lower leg 10/10/2007 Pain in joint, multiple sites 10/05/2007 Resolved Problems Problem Noted Date Resolved Date Hypertensive urgency 01/03/2017 01/06/2017 Respiratory alkalosis 01/03/2017 01/06/2017 Most Recent Encounters Date Type Specialty Providers Description 01/05/2017 [facility] and Mamadou Duffy MD Chief Comp: Patient Encounter Vascular Reported Reason For Visit 01/05/2017 [facility] and Sarina Tirado, Chief Comp: Patient Encounter Vascular Reported Reason For Visit 01/05/2017 [facility] Sarina Cancino, Chief Comp: Patient Encounter Vascular Reported Reason For Visit 01/02/2017 - [facility] Care Bebo Ibanez T, Dx: Dyspnea, 01/06/2017 Encounter Inpatient - Adult DO unspecified type John Lester (Primary Dx) MD Kartik Lock Melinda J, MD Chahla, Mayy, MD Immunizations Name Dates Previously Given Next Due Influenza, unspecified 06/09/2007 Pneumococcal, unspecified 06/09/2006 Social History Tobacco Use Types Packs/Day Years Used Date Never Smoker Smokeless Tobacco: Never Used Last Filed Vital Signs Vital Sign Reading Time Taken Blood Pressure 159/48 01/06/2017 4:00 PM CDT Pulse 64 01/06/2017 4:00 PM CDT Temperature 36.3 C (97.3 F) 01/06/2017 4:00 PM CDT Respiratory Rate 18 01/06/2017 4:00 PM CDT Height 1.549 m (5' 1") 01/03/2017 1:08 AM CDT Weight 73.755 kg (162 lb 9.6 oz) 01/03/2017 1:08 AM CDT Body Mass Index 30.74 01/03/2017 1:08 AM CDT Oxygen Saturation 99% 01/06/2017 4:00 PM CDT Plan of Care Health Maintenance Due Date Last Done Comments Hepatitis B Vaccine (1 of 3 - Primary Series) 1935 Tdap Vaccine 1946 DIABETIC: Cholesterol 10/25/1951 Diabetic: Hdl 10/25/1951 Diabetic: Ldl 10/25/1951 DIABETIC: Microalbumin 10/25/1951 DIABETIC: Triglycerides 10/25/1951 Td Vaccine 10/25/1951 Colonoscopy 1983 Zoster Vaccine 1993 Osteoporosis Screening (DXA Bone Density) 1998 Pneumococcal Vaccine (1 of 2 - PCV13) 1998 DIABETIC: Foot Exam 07/19/2016 DIABETIC: Retinal Eye Exam 07/19/2016 Influenza Vaccine: Seasonal (Season Ended) 2017 06/09/2007 DIABETIC: Hemoglobin A1C 07/06/2017 01/03/2017 Results from Last 3 Months PTT (PARTIAL THROMBOPLASTIN TIME) (01/06/2017 2:51 PM)Only the most recent of7 resultswithin the time period is included. Component Value Range PTT 46(H) 22-31 secs Specimen Blood BLOOD GLUCOSE, BEDSIDE (01/06/2017 11:38 AM)Only the most recent of14 resultswithin the time period is included. Component Value Range Glucose, Accu-Chek 226(H) 65-99 mg/dL Specimen Blood, capillary PLATELET COUNT (01/06/2017 7:52 AM) Component Value Range Platelet Count 197 150-400 K/MM3 Specimen Whole Blood PT/INR (PROTHROMBIN TIME/INR) VENOUS (01/06/2017 7:52 AM)Only the most recent of3 resultswithin the time period is included. Component Value Range PT (Prothrombin Time) 10 9-12 secs INR 1.0 <4.0 Specimen Blood ECHO ADULT - ECHOCARDIOGRAM, TRANSTHORACIC (01/05/2017 4:25 PM) Component Value Range Interpretation Summary LV Ejection Fraction=73% .Possible diastolic dysfunction. Normal RV size and systolic function. No significant valve dysfunction. Patient Height (cm) 155 cm Patient Weight (kg) 73.8 kg Systolic Pressure (mmHg) 152 mmHg Diastolic Pressure (mmHg) 50 mmHg BSA (meters^2) 1.7 m^2 Left Ventricle (LV) Normal left ventricular size. Borderline left ventricular hypertrophy Hyperdynamic left ventricular function LV Ejection Fraction=73% (based on Biplane Method of Discs). The transmitral spectral Doppleris normal for age. E/E' ratio is 15.5, which predicts an elevated LV filling pressure. No regional wall motion abnormalities noted. Right Ventricle (RV) Normal right ventricular size. Normal right ventricular systolic function. Left and Right Atria (LA, RA) Mildly enlarged left atrial size. Normal right atrial size. Mitral Valve (MV) No mitral valve stenosis. No mitral regurgitation Tricuspid Valve (TV) No tricuspid stenosis. No significant tricuspid regurgitation by color doppler Aortic Valve (AoV) Trileaflet Aortic valve. Mildly calcified aortic valve leaflets Mildly restricted aortic valve leaflets No aortic regurgitation by color Doppler. No hemodynamically significant valvular aortic stenosis by doppler Pulmonic Valve (PV) No pulmonic valve stenosis by doppler No pulmonic valvular regurgitation by doppler Aorta and Pulmonary Artery (Ao, PA) The aortic root is normal size. Pericardium/Pleura There is no pericardial effusion. Procedures Complete 2D with Doppler, Color Flow and image documentation ( [id number]) I personally viewed the echocardiogram and approve the above interpretation Inf. Vena Cava (IVC) / Pulm. Veins Visualization of the IVC is inadequate for IVC size measurement Primary ICD-9 Code Shortness of breath (786.05) IVSd 1.2 cm LVIDd 5.1 cm LVIDs 2.8 cm LVPWd 1.2 cm IVS/LVPW 1.1 Ao root diam 3.0 cm Ao root area 7.1 cm^2 LVAd ap4 22.2 cm^2 EF(MOD-sp4) 72.1 % MV E max lizeth 104.1 cm/sec MV A max lizeth 130.3 cm/sec MV E/A 0.80 MV dec time 0.33 sec Ao V2 max 185.3 cm/sec Ao max PG 13.7 mmHg PA V2 max 123.5 cm/sec PA max PG 6.1 mmHg TR Max lizeth 202.2 cm/sec Low Range of LVEF 73 High Range of LVEF 73 Reason For Study Palpitations [employer] Technician Nicanor Lepe Interpreting Physician Mamadou Duffy MD electronically signed on 2017-01-05 17:42:59.883 VASC LOWER EXT VENOUS DUPLEX (BILATERAL) (01/05/2017 10:36 AM)HEMOGLOBIN (2016 8:10 AM) Component Value Range Hemoglobin 8.5(L) 11.9-15.5 g/dL Specimen Whole Blood BASIC METABOLIC PANEL W/ CALCIUM (CHEM 8) (01/05/2017 8:10 AM)Only the most recent of2 resultswithin the time period is included. Component Value Range Sodium 136 135-145 mEq/L Potassium 3.9 3.5-5.0 mEq/L Chloride 102 95-107 mEq/L CO2 19(L) 22-29 mEq/L BUN 63(H) 10-20 mg/dL Creatinine 2.7(H)Comment: 0.5-1.0 mg/dL Creatinine switched to enzymatic method on 12/16/2010.GFR equation switched to IDMS-traceable MDRD equation on 12/16/2010. Calculated GFR values are not valid in clinical settings where serum creatinine is changing. Glucose 205(H)Comment: 65-99 mg/dL The Expert Committee on the Diagnosis and Classification of Diabetes has defined impaired fasting glucose as greater than or equal to 100 mg/dL but less than 126 mg/dL.(Diabetes Care 28 (Suppl 1)S41,2005) Calcium 8.5 8.5-10.5 mg/dL Anion Gap 15 <17 mEq/L Calculated GFR 17(L) >60 mL/min/1.73 m2 Specimen Blood BLOOD CELL MORPHOLOGY (01/04/2017 10:03 AM) Specimen Whole Blood CBC (COMPLETE BLOOD COUNT) (01/04/2017 10:03 AM)Only the most recent of2 resultswithin the time period is included. Component Value Range WBC Count 9.4 3.7-10.5 K/MM3 RBC Count 3.16(L) 4.00-5.20 M/MM3 Hemoglobin 10.2(L) 11.9-15.5 g/dL Hematocrit 29(L) 35-47 % MCV (Mean Corpuscular Volume) 92 82-99 FL MCH (Mean Corpuscular Hemoglobin) 32 25-35 PG MCHC (Mean Corpuscular Hemoglobin 35 32-36 % Concentration) Platelet Count Clumped(A)Comment:Platelets clumped on smear; appear normal by estimate. MPV (Mean Platelet Volume) 13.5(H) 9.4-12.3 FL RBC Dist Width-STD 47.6(H) 36.4-46.3 FL RBC Distrib Width 14.2 9.0-14.5 % Nucleated RBC 0 /100 WBC Specimen Whole Blood CALCIUM (01/04/2017 10:03 AM) Component Value Range Calcium 8.5 8.5-10.5 mg/dL Specimen Blood PHOSPHORUS (01/04/2017 10:03 AM)Only the most recent of2 resultswithin the time period is included. Component Value Range Phosphorus 4.3Comment:New reference range installed 05/21/15. 2.5-4.5 mg/dL Specimen Blood MAGNESIUM (01/04/2017 10:03 AM)Only the most recent of2 resultswithin the time period is included. Component Value Range Magnesium 2.0 1.5-2.9 mg/dL Specimen Blood CHEM 7 PANEL (01/04/2017 10:03 AM)Only the most recent of2 resultswithin the time period is included. Component Value Range Sodium 137 135-145 mEq/L Chloride 98 95-107 mEq/L Potassium 3.4(L) 3.5-5.0 mEq/L CO2 20(L) 22-29 mEq/L BUN 61(H) 10-20 mg/dL Creatinine 2.9(H)Comment: 0.5-1.0 mg/dL Creatinine switched to enzymatic method on 12/16/2010.GFR equation switched to IDMS-traceable MDRD equation on 12/16/2010. Calculated GFR values are not valid in clinical settings where serum creatinine is changing. Glucose 227(H)Comment: 65-99 mg/dL The Expert Committee on the Diagnosis and Classification of Diabetes has defined impaired fasting glucose as greater than or equal to 100 mg/dL but less than 126 mg/dL.(Diabetes Care 28 (Suppl 1)S41,2005) Anion Gap 19(H) <17 mEq/L Calculated GFR 15(L) >60 mL/min/1.73 m2 Specimen Blood POTASSIUM (01/04/2017 12:02 AM) Component Value Range Potassium 4.5 3.5-5.0 mEq/L Specimen Blood LIVER PANEL (01/03/2017 6:39 AM) Component Value Range Bilirubin Total 0.3 <=1.2 mg/dL AST 16Comment: 0-32 U/L Adult reference ranges updated on 07/04/13 at 830am ALT 12Comment: 0-33 U/L The upper limit of normal for alanine aminotransferase (ALT) reference ranges for adults is controversial with some authorities recommending limit as low as 30 U/L for males and 19 U/L for females. Th ere is increased incidence of subclinical liver disease (e.g., early steatohepatitis) in patients with ALT values in the range of 31-41 U/L for males and 20-33 U/L for females. ALT values should alway s be interpreted in conjunction with clinical history, physical examination findings, and, if applicable, data from other diagnostic tests. ALP 70 35-104 U/L GGT 19 5-36 U/L Albumin 2.7(L) 3.4-4.8 g/dL Total Protein 5.7(L) 6.0-8.0 g/dL Specimen Blood HEMOGLOBIN A1C (01/03/2017 6:39 AM) Component Value Range Hemoglobin A1c 6.9(H)Comment: 4.8-6.0 % Glycemic Control Guidelines: Non-diabetic <6% Goal <7% Therapeutic Action >8% Estimated Average Glucose 151Comment: mg/dL The estimated average glucose (eAG) calculated from the HbA1c changed on 28/03.See Laboratory Bulletins in the Department of Pathology Laboratory Services Handbook for a full discussion.Not e that the new calculated glucose will now be lower.The A1c result is unchanged. Specimen Whole Blood TROPONIN T (01/03/2017 6:39 AM)Only the most recent of3 resultswithin the time period is included. Component Value Range Troponin-T 0.06 <=0.10 ng/mL Specimen Blood MICROSCOPIC URINALYSIS (01/03/2017 6:09 AM) Component Value Range White Blood Cells, Urine 4 0-5 /HPF Red Blood Cells, Urine <1 0-2 /HPF Squamous Epithelial Cells, Urine 14(H) <=10 /LPF Transitional Epithelial Cells, Urine 1 <=10 /LPF Specimen Urine URINALYSIS WITH REFLEX CULTURE (01/03/2017 6:09 AM) Component Value Range Color, Urine Yellow Straw, Pale Yellow, Yellow, Clear, None Clarity, Urine Clear Clear pH, Urine 6.0 <9.0 Spec Parrish, Urine 1.010 1.000-1.030 Glucose, Urine 1+(A) Negative Blood, Urine Negative Negative Ketones, Urine Negative Negative Protein, Urine 3+(A) Negative Urobilinogen, Urine Normal Normal Bilirubin, Urine Negative Negative Leukocyte Esterase, Urine Negative Negative Nitrite, Urine Negative Negative Specimen Urine UREA NITROGEN-URINE,RANDOM (01/03/2017 6:07 AM) Component Value Range Urea Nitrogen, Urine, Random 305 mg/dL Specimen Urine CREATININE-URINE, RANDOM (01/03/2017 6:07 AM) Component Value Range Creatinine, Urine, Random 41.4 mg/dL Specimen Urine SODIUM-URINE,RANDOM (01/03/2017 6:07 AM) Component Value Range Sodium, Urine, Random 76 mEq/L Specimen Urine URINALYSIS WITH REFLEXED CULTURE AND MICROSCOPIC EXAM (01/03/2017 6:07 AM) Specimen Culture - Urine, Midstream clean catch Narrative The following orders were created for panel order URINALYSIS WITH REFLEXED CULTURE AND MICROSCOPIC EXAM. Procedure Abnormality Status --------- ------ URINALYSIS WITH REFLEX C...[[id number]]AbnormalFinal result MICROSCOPIC URINALYSIS[[id number]] Abnormal Final result URINE CULTURE, REFLEXED[[id number]]Abnormal Final result Please view results for these tests on the individual orders. URINE CULTURE, REFLEXED (01/03/2017 6:07 AM) Component Value Range Quantitative Culture >100,000 CFU/mL Klebsiella pneumoniae(A) Specimen Culture - Urine, Midstream clean catch Narrative Identification performed by MALDI-TOF mass spectrometry (MS).The performance characteristics of MALDI-TOF MS were determined by the [facility].It has not been cleared orApproved by the FDA. The FDA has determined that such clearance or approval is not necessary.This test is for clinical purposes. It should not be regarded as investigational or for research.The laboratory is certified under the Clinical Laboratory Improvement Amendments of 1988 (CLIA) as qualified to perform high complexity clinical laboratory testing. Organism Antibiotic Method Susceptibility Klebsiella pneumoniae AMPICILLIN Resistant Klebsiella pneumoniae AMPICILLIN/SULBACTAM 4: Susceptible Klebsiella pneumoniae CEFTRIAXONE <=1: Susceptible Klebsiella pneumoniae CIPROFLOXACIN <=0.25: Susceptible Klebsiella pneumoniae GENTAMICIN <=1: Susceptible Klebsiella pneumoniae NITROFURANTOIN <=16: Susceptible Klebsiella pneumoniae PIPERACILLIN/TAZOBACTAM <=4: Susceptible Klebsiella pneumoniae TRIMETHOPRIM/SULFA <=1: Susceptible Klebsiella pneumoniae CEFAZOLIN <=4: Susceptible ECG - EKG 12 LEAD (01/03/2017 4:13 AM)Only the most recent of2 resultswithin the time period is included. Component Value Range ECG SEVERITY - ABNORMAL ECG - VENT. RATE 60 bpm RR 1000 ms P-R INTERVAL 148 ms QRSD INTERVAL 90 ms QT INTERVAL 396 ms QTC INTERVAL 396 ms P AXIS 46 degrees QRS AXIS -2 degrees T WAVE AXIS 140 degrees REPORT SINUS RHYTHM [Remains] ABNORMAL T, CONSIDER ISCHEMIA, LATERAL LEADS [Remains] NO SIGNIFICANT CHANGE Interpreting Physician: Maykel Ortega MD CT BRAIN WO CONTRAST ([id number]) (01/03/2017 4:04 AM) Impressions Impression: No acute intracranial findings. This final report is in agreement with the critical and emergent preliminary findings reported by the vice president [employer] retail and promotions coordinator. Narrative Procedure: CT BRAIN WO CONTRAST ([id number]) Indication: Hypertension, weak arms, not following commands. On blood thinners for pulmonary embolism Technique: Axial CT of the brain without IV contrast. Sagittal and coronal reformations are also provided for review. Comparison: None Findings: There is no evidence of acute large vascular distribution infarct, mass lesion or hemorrhage. The ventricles, cortical sulci and basal cisterns are symmetric. Incidental calcifications in the bilateral basal ganglia, right greater than left. Normal brainstem and posterior fossa. No calvarial fractures. Procedure Note Mauricio, Incoming Imaging Results - [place] January 03, 2017 7:04 AM CDT Procedure: CT BRAIN WO CONTRAST ([id number]) Indication: Hypertension, weak arms, not following commands. On blood thinners for pulmonary embolism Technique: Axial CT of the brain without IV contrast. Sagittal and coronal reformations are also provided for review. Comparison: None Findings: There is no evidence of acute large vascular distribution infarct, mass lesion or hemorrhage. The ventricles, cortical sulci and basal cisterns are symmetric. Incidental calcifications in the bilateral basal ganglia, right greater than left. Normal brainstem and posterior fossa. No calvarial fractures. IMPRESSION Impression: No acute intracranial findings. This final report is in agreement with the critical and emergent preliminary findings reported by the vice president [employer] retail and promotions coordinator. CHEST - AP/PA (01/03/2017 3:23 AM) Impressions Findings / Impression: No focal airspace disease. Scattered calcified granulomas. No pneumothorax. No right pleural effusion. Left costophrenic angle was not included in this exam. Cardiomediastinal silhouette and pulmonary vasculature are normal allowing for exam technique. Narrative Procedure: CHEST - AP/PA Technique: Portable AP chest radiograph Comparison: None Clinical Indication: Shortness of breath, hypertensive urgency, positive ventilation perfusion scan Procedure Note Mauricio, Incoming Imaging Results - [place] January 03, 2017 6:47 AM CDT Procedure: CHEST - AP/PA Technique: Portable AP chest radiograph Comparison: None Clinical Indication: Shortness of breath, hypertensive urgency, positive ventilation perfusion scan IMPRESSION Findings / Impression: No focal airspace disease. Scattered calcified granulomas. No pneumothorax. No right pleural effusion. Left costophrenic angle was not included in this exam. Cardiomediastinal silhouette and pulmonary vasculature are normal allowing for exam technique. DIFFERENTIAL (01/03/2017 2:53 AM) Component Value Range % Neutrophils-Auto Diff 66.5 % Neutrophils-Auto Diff 5120 7145-7768 /MM3 % Lymphocytes-Auto Diff 21.1 % Lymphocytes-Auto Diff 1105 132-0916 /MM3 % Monocytes-Auto Diff 7.8 % Monocytes-Auto Diff 600 130-860 /MM3 % Eosinophils-Auto Diff 3.5 % Eosinophils-Auto Diff 270 40-390 /MM3 % Basophils 0.3 % Basophils-Auto Diff 20 10-136 /MM3 % Immature Granulocytes-Auto Diff 0.8 % Immature Granulocytes-Auto Diff 60 /MM3 Specimen Whole Blood CBC (COMPLETE BLOOD COUNT) (01/03/2017 2:53 AM) Component Value Range WBC Count 7.7 3.7-10.5 K/MM3 RBC Count 3.02(L) 4.00-5.20 M/MM3 Hemoglobin 9.5(L) 11.9-15.5 g/dL Hematocrit 29(L) 35-47 % MCV (Mean Corpuscular Volume) 96 82-99 FL MCH (Mean Corpuscular Hemoglobin) 32 25-35 PG MCHC (Mean Corpuscular Hemoglobin Concentration) 33 32-36 % Platelet Count 247 150-400 K/MM3 MPV (Mean Platelet Volume) 12.3 9.4-12.3 FL RBC Dist Width-STD 50.4(H) 36.4-46.3 FL RBC Distrib Width 14.6(H) 9.0-14.5 % Nucleated RBC 0 /100 WBC Specimen Whole Blood LACTIC ACID, WHOLE BLOOD ([facility]) (01/03/2017 2:53 AM) Component Value Range Lactic Acid, Whole Blood 0.8Comment: 0.5-2.0 mEq/L Glycolate, the principle toxic metabolite of ethylene glycol, can cause artifactual elevation of measured lactate. Specimen Whole Blood CBC WITH DIFFERENTIAL (01/03/2017 2:53 AM) Specimen Whole Blood Narrative The following orders were created for panel order CBC WITH DIFFERENTIAL. Procedure Abnormality Status --------- ------ CBC (COMPLETE BLOOD COUNT)[[id number]] AbnormalFinal result DIFFERENTIAL[[id number]] Final result Please view results for these tests on the individual orders. IRON PANEL (IRON, TRANSFERRIN, TIBC AND % SATURATION) (01/03/2017 12:08 AM) Component Value Range Iron, Blood 63 37-145 g/dL Transferrin 176(L) 200-360 mg/dL Iron % Saturation 25Comment: 15-50 % Iron % saturation is a calculated parameter derived from the iron and transferrin plasma concentrations. Iron % saturation is not reliable when there are high ferritin concentrations greater than 1,200 ng/mL. TIBC (Total Iron Binding Capacity) 252Comment: 250-425 g/dL TIBC is a calculated parameter derived from the transferrin plasma concentration. Specimen Blood FERRITIN (01/03/2017 12:08 AM) Component Value Range Ferritin 125.6 13.0-150.0 ng/mL Specimen Blood B-HYDROXYBUTYRATE (01/03/2017 12:08 AM) Component Value Range Beta-Hydroxybutyrate 0.6(H) 0.0-0.3 mEq/L Specimen Blood OSMOLALITY, PLASMA (01/03/2017 12:08 AM) Component Value Range Osmolality, Plasma 310(H) 275-295 mOsm/kg Specimen Blood THYROXINE - FREE (01/03/2017 12:08 AM) Component Value Range Free T4 (Thyroxine) 1.76 0.80-1.80 ng/dL Specimen Blood THYROID STIMULATING HORMONE (TSH), WITH REFLEX FREE T-4 (01/03/2017 12:08 AM) Component Value Range TSH, Reflex 4.63(H) 0.27-4.20 IU/mL Specimen Blood NUC LUNG PERF& VENT AEROSOL ([id number]) (01/02/2017 9:51 PM) Impressions Impression: Three subsegmental mismatched perfusion defects consistent with pulmonary embolism. Contact: Dr. Thuy Allan on 01/02/2017 at 22:20 hrs. This final report is in agreement with the critical and emergent preliminary findings reported by the vice president [employer] and promotions coordinator. Narrative Procedure: NUC LUNG PERF & VENT AEROSOL ([id number]) Indication: Dyspnea and elevated d-dimer. Radiopharmaceuticals: 1. Technetium-99m (Tc-99m) sulfur colloid 1 mCi aerosol inhalation at 2105 hrs. 2. Tc-99m macroaggregated albumin (MAA) 6.47 mCi IV in left forearm at 2125 hrs. Comparison: No relevant imaging available for comparison. Technique: Lung ventilation imaging immediately followed inhalation of aerosolized radiopharmaceutical. Pulmonary perfusion imaging followed IV administration of MAA radiopharmaceutical. SPECT( single photon emission computed tomography) was performed and the raw projectional data was used to reconstruct planar images in 8 standard projectional views. Findings: There are three subsegmental mismatched perfusion defects demonstrating preserved ventilation located in the right apex, lateral basal segment of the left lower lobe, and lingula, consistent with pulmonary embolism. Otherwise there is a subsegmental matched defect in the superior segment of the right lower lobe, suggestive of airspace disease. Procedure Note Mauricio, Incoming Imaging Results - [place] January 03, 2017 10:25 AM CDT Procedure: NUC LUNG PERF & VENT AEROSOL ([id number]) Indication: Dyspnea and elevated d-dimer. Radiopharmaceuticals: 1. Technetium-99m (Tc-99m) sulfur colloid 1 mCi aerosol inhalation at 2105 hrs. 2. Tc-99m macroaggregated albumin (MAA) 6.47 mCi IV in left forearm at 2125 hrs. Comparison: No relevant imaging available for comparison. Technique: Lung ventilation imaging immediately followed inhalation of aerosolized radiopharmaceutical. Pulmonary perfusion imaging followed IV administration of MAA radiopharmaceutical. SPECT( single photon emission computed tomography) was performed and the raw projectional data was used to reconstruct planar images in 8 standard projectional views. Findings: There are three subsegmental mismatched perfusion defects demonstrating preserved ventilation located in the right apex, lateral basal segment of the left lower lobe, and lingula, consistent with pulmonary embolism. Otherwise there is a subsegmental matched defect in the superior segment of the right lower lobe, suggestive of airspace disease. IMPRESSION Impression: Three subsegmental mismatched perfusion defects consistent with pulmonary embolism. Contact: Dr. Thuy Allan on 01/02/2017 at 22:20 hrs. This final report is in agreement with the critical and emergent preliminary findings reported by the vice president precision market insights retail and promotions coordinator.
[2017-01-20] MEDS ORDERED: hydrALAZINE HCL 20 MG/ML VIAL IV ONE ×2 (19:09→20:57)
--- NOTE | 2017-01-20 19:10 | ERNOTE ---
Dyspnea - Date Date of Service: 01/20/17 - General Presenting Symptoms: shortness of breath, other - leg numbness Time Seen by Provider: 01/20/17 18:42 Source: patient Exam Limitations: no limitations - Immun/Allergies/Home Medications Immunizations: IMMUNIZATION HX Immunizations Up to Date No: not sure History of Influenza Vaccine Yes Hx Pneumococcal Vaccination Yes Allergies/Adverse Reactions: Allergies milk Allergy (Mild, Verified 01/20/17 18:30) Nausea nausea, diarrhea, abd pain erythromycin base [Erythromycin Base] Allergy (Verified 01/20/17 18:30) iron Allergy (Verified 01/20/17 18:30) morphine Allergy (Verified 01/20/17 18:30) Penicillins Allergy (Verified 01/20/17 18:30) cholesterol meds Allergy (Uncoded 01/20/17 18:30) Home Medications: HOME MEDICATIONS hydrALAZINE HCL [Hydralazine HCl] 50 mg PO TID 05/05/16 [Last Taken 16] Levothyroxine Sodium [Levo-T] 150 mcg PO DAILY 10/05/16 [Last Taken Unknown] Allopurinol [Zyloprim] 100 mg PO BID tablet 10/08/16 [Last Taken Unknown] Calcitriol [Rocaltrol] 0.25 mcg PO DAILY 12/30/16 [Last Taken Unknown] Furosemide [Lasix] 80 mg PO DAILY 12/30/16 [Last Taken Unknown] Glimepiride [Amaryl] 4 mg PO DAILY 12/30/16 [Last Taken Unknown] Loratadine [Claritin] 10 mg PO DAILY 12/30/16 [Last Taken Unknown] Amlodipine Besylate 10 mg PO DAILY 01/20/17 [Last Taken Unknown] Sulfamethoxazole/Trimethoprim [Bactrim Ds] 1 tab PO BID #28 tab 01/20/17 [Last Taken Unknown] - History of Present Illness Narrative: Pt. comes in with c/o fatigue, SOB, leg numbness, but denies any fever, cough, alleviating factors, or aggravating factors. Pt. was recently discharged from the [facility] with a PE and started on blood thinners and was seen by her PCP this morning and told that she could not drive anymore due to confusion and chronic fatigue. Pt. denies any dizziness, lightheadedness, vision changes, NVD, or abd pain. Review of Systems - Review of Systems Constitutional: Present: weakness, fatigue, malaise. Absent: recent illness, fever, chills EYE: Present: no symptoms reported ENT: Present: no symptoms reported Respiratory: Present: shortness of breath. Absent: cough, wheezing Cardiology: Present: no symptoms reported. Absent: chest pain, palpitations, edema Gastrointestinal/Abdominal: Present: no symptoms reported. Absent: nausea, vomiting, diarrhea Musculoskeletal: Present: no symptoms reported. Absent: back pain, joint pain Skin: Present: no symptoms reported Neurological: Present: numbness, tingling. Absent: headache, dizziness/light- headedness All Other Systems: All systems neg except as marked - Patient's Past Medical History Patient History - Medical: Anemia, Arthritis, Diabetes Type 2, Hypothyroidism, Obesity, Osteoarthritis, Renal Disease, Renal Failure Patient History - Cardiac/Respiratory: Atrial Fibrillation, CHF, Hypertension, Hyperlipidemia Patient History - Cancer: No Hx of Cancer Patient History - Surgical Procedures: Cholecystectomy, Total Knee Replacement Patient History - Other: None - Family History Father Family History - Medical: , Diabetes Type 2 Family History - Cardiac/Respiratory: No pertinent hx Mother Family History - Medical: , No pertinent hx Family History - Cardiac/Respiratory: No pertinent hx - Social History Living Situations: home Abuse History: No History of abuse Psych History: No pertinent hx Smoking Status: Never smoker Alcohol Use: none Drug Use: none - Immunizations Immunizations Up to Date: No - not sure Hx Pneumococcal Vaccination: Yes History of Influenza Vaccine: Yes Physical Exam - Physical Exam General Appearance: Present: wd/wn, alert, no apparent distress Eye Exam: Normal inspection: bilateral, PERRL: bilateral, EOMI: bilateral Ears, Nose, Throat: Present: normal ENT inspection, normal pharynx Neck: Present: normal inspection, nontender. Absent: lymphadenopathy (R), lymphadenopathy (L) Respiratory: Present: no respiratory distress, normal breath sounds, no accessory muscle use, chest nontender, lungs clear Cardiovascular/Chest: Present: regular rate, rhythm, no murmur, normal peripheral pulses Gastrointestinal/Abdominal: Present: normal bowel sounds, nontender, nondistended, soft, no organomegaly Back Exam: Present: normal inspection, normal range of motion, no CVA tenderness , no vertebral tenderness Extremity Exam: Present: calf tenderness - L Neurological Exam: Present: alert, oriented, normal mood/affect, no motor/ sensory deficits, physical scientist II-XII nml as tested, normal cerebellar test Skin Exam: Present: warm/dry, pallor. Absent: skin rash ED Progress - Date and Time Seen: Date and Time: 01/20/17 21:[address] Hopkins and we feel that the pt. has many chronic issues that pt. is under treatment for currently and that treating UTI will decrease symptoms but pt. needs to have someone monitor her medications as she is not taking her medications correctly. Discussed this with pt. and family. - Results and Orders Patient's Lab Results:: I have reviewed the patient's lab results. - Vital Signs Patient's Vital Signs:: I have reviewed the patient's vital signs. Vital Signs: Vital Signs 01/20/17 18:24 Temperature 37.3 C Pulse Rate 79 Respiratory 20 Rate Blood Pressure 214/60 O2 Sat by Pulse 97 Oximetry - EKG EKG: nonspecific ST T wave changes EKG read: Reviewed by me EKG Comments: No clear evidence of STEMI as interp by Dr Mathews - Progress/Reassessment Chief Complaint: Dyspnea Progress:: Improved Departure Clinical Impression: Diabetes mellitus type 2 in obese, Dyspnea on exertion Pulmonary embolism Qualifiers: Pulmonary embolism type: other Chronicity: chronic Acute cor pulmonale presence : without acute cor pulmonale Qualified Code(s): I27.82 - Chronic pulmonary embolism - Departure Disposition: Home self-care Condition: Good Instructions: Pulmonary Embolism, Hypertension, [id number] Additional Instructions: Please follow up with primary provider in 2-3 days. Have someone put your medications in an organizer so thaey are taken correctly. Referrals: Hao Varma MD [Primary Care Provider] - Prescriptions: Sulfamethoxazole/Trimethoprim [Bactrim Ds] 1 tab PO BID #28 tab
[2017-01-20] MEDS ORDERED: hydrALAZINE HCL 20 MG/ML VIAL ONE (19:27)
[2017-01-20 19:30] LABS: Prothrombin Time (Patient) 10.3 Seconds (9.4-11.4)
[2017-01-20 19:31] LABS: INR 0.99 INR (0.90-1.10); Partial Thrombolplastin Time 28.7 Seconds (24-32)
[2017-01-20 20:06] LABS: Urine Bilirubin Negative (NEGATIVE); Urine Blood Negative /ul (NEGATIVE); Urine Ketone Negative (NEGATIVE); Urine Nitrite Negative (NEGATIVE); Urine Protein >=300 mg/dL (NEGATIVE); Urine Specific Gravity 1.015 SP.GR. (1.005-1.010); Urine Urobilinogen Normal (NORMAL)
[2017-01-20 20:16] LABS: Urine Appearance Slightly Cloudy; Urine Color Yellow
[2017-01-20 20:17] LABS: Urine Bacteria 4+; Urine RBC None Seen /hpf (0-5); Urine WBC TRACE /hpf (0-5)
[2017-01-20 21:02] VITALS: BP 164/58
[2017-01-20] MEDS ORDERED: SULFAMETHOXAZOLE/TRIMETHOPRIM 1 TAB TABLET PO ONE (21:13)
[2017-01-20] MEDS ORDERED: SULFAMETHOXAZOLE/TRIMETHOPRIM 1 TAB TABLET ONE (21:15)
== END 2017-01-20 21:20 | disposition home or self-care (01) ==
LOC: ER 18:14
DX: E11.9 Type 2 diabetes mellitus without complications (principal); I27.82 Chronic pulmonary embolism; E66.9 Obesity, unspecified; R53.83 Other fatigue; Z79.01 Long term (current) use of anticoagulants; M79.662 Pain in left lower leg

== ENCOUNTER 2017-01-22 23:21 | Emergency (ER) | payer MEDICARE ==
--- OUTSIDE RECORDS SUMMARY | 2017-01-22 23:34 | XMS REPORT | Continuity of Care Document ---
:1935 Author Organization [facility] ([facility]) Address [address] [place] [address] Phone [phone] Care Team Providers Name Role Phone Chichi Varmao Primary Care Provider [phone] Source Comments This disclosure is being made pursuant to the Care Everywhere program, applicable federal and state laws, and may not contain all informaitonavailable regarding this patient.[facility] ([facility]) Active Allergies and Adverse Reactions Allergen [...] Encounters Date Type Specialty Providers Description 01/05/2017 [facility] and Mamadou uDffy MD Chief Comp: Patient Encounter Vascular Reported Reason For Visit 01/05/2017 [facility] and Sarina Tirado, Chief Comp: Patient Encounter Vascular Reported Reason For Visit 01/05/2017 [facility] Sarina Cancino, Chief Comp: Patient Encounter Vascular Reported Reason For Visit 01/02/2017 - [facility] General Care Bebo Ibanez T, Dx: [...] Doppler, Color Flow and image documentation ( [id number]) I personally viewed the echocardiogram and approve [...] of LVEF 73 Reason For Study Palpitations 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 URINE CULTURE, REFLEXED (01/03/2017 6:07 AM) Component Value Range Quantitative Culture >100,000 CFU/mL Klebsiella pneumoniae(A) Specimen Culture - Urine, Midstream clean catch Narrative Identification performed by MALDI-TOF mass spectrometry (MS).The performance characteristics of MALDI-TOF MS were determined by the [facility].It has not been cleared orApproved by [...] [Remains] NO SIGNIFICANT CHANGE Interpreting Physician: Maykel Orteag MD CT BRAIN WO CONTRAST ([id number]) (01/03/2017 4:04 AM) Impressions Impression: No acute intracranial findings. This final report is in agreement with the critical and emergent preliminary findings reported by the vice president regulatory donor floor technician. Narrative Procedure: CT BRAIN WO CONTRAST ([id number]) Indication: Hypertension, weak arms, not following commands. [...] Procedure Note Mauricio, Incoming Imaging Results - [place] January 03, 2017 7:04 AM CDT Procedure: CT BRAIN WO CONTRAST ([id number]) Indication: Hypertension, weak arms, not following commands. [...] preliminary findings reported by the vice president regulatory donor floor technician. CHEST - AP/PA (01/03/2017 3:23 AM) Impressions [...] Procedure Note Mauricio, Incoming Imaging Results - [place] January 03, 2017 6:47 AM CDT Procedure: [...] Neutrophils-Auto Diff 66.5 % Neutrophils-Auto Diff 5120 [id number] /MM3 % Lymphocytes-Auto Diff 21.1 % Lymphocytes-Auto Diff [phone] /MM3 % Monocytes-Auto Diff 7.8 % Monocytes-Auto [...] Abnormality Status --------- ------ CBC (COMPLETE BLOOD COUNT)[[id number]] AbnormalFinal result DIFFERENTIAL[[id number]] Final result Please view results for these [...] Specimen Blood NUC LUNG PERF& VENT AEROSOL ([id number]) (01/02/2017 9:51 PM) Impressions Impression: Three subsegmental mismatched perfusion defects consistent with pulmonary embolism. Contact: Dr. Thuy Allan on 01/02/2017 at 22:20 hrs. This final report is in agreement with the critical and emergent preliminary findings reported by the vice president regulatory donor floor technician. Narrative Procedure: NUC LUNG PERF & VENT AEROSOL ([id number]) Indication: Dyspnea and elevated d-dimer. Radiopharmaceuticals: 1. [...] Procedure: NUC LUNG PERF & VENT AEROSOL ([id number]) Indication: Dyspnea and elevated d-dimer. Radiopharmaceuticals: 1. [...] preliminary findings reported by the vice president regulatory donor floor technician.
--- NOTE | 2017-01-23 00:51 | ERNOTE ---
Medical Problem HPI - Narrative Date of Service: 01/23/17 - General Chief Complaint: Screening, Blood Pressure Time Seen by Provider: 01/23/17 00:48 Source: patient, family - DAUGHTER , WHO SAYS HER MOM HAS POOR MEMORY AND WONDERS IF SHE HAS DEMENTIA. Exam Limitations: clinical condition - Immun/Allergies/Home Medications Immunizations: IMMUNIZATION HX Immunizations Up to Date Yes: not sure History of Influenza Vaccine Yes Hx Pneumococcal Vaccination Yes Allergies/Adverse Reactions: Allergies milk Allergy (Mild, Verified 01/20/17 18:30) Nausea nausea, diarrhea, abd pain erythromycin base [Erythromycin Base] Allergy (Verified 01/20/17 18:30) iron Allergy (Verified 01/20/17 18:30) morphine Allergy (Verified 01/20/17 18:30) Penicillins Allergy (Verified 01/20/17 18:30) cholesterol meds Allergy (Uncoded 01/20/17 18:30) Home Medications: HOME MEDICATIONS hydrALAZINE HCL [Hydralazine HCl] 50 mg PO TID 05/05/16 [Last Taken 05/05/16] Levothyroxine Sodium [Levo-T] 150 mcg PO DAILY 10/05/16 [Last Taken Unknown] Allopurinol [Zyloprim] 100 mg PO BID tablet 10/08/16 [Last Taken Unknown] Calcitriol [Rocaltrol] 0.25 mcg PO DAILY 12/30/16 [Last Taken Unknown] Furosemide [Lasix] 80 mg PO DAILY 12/30/16 [Last Taken Unknown] Glimepiride [Amaryl] 4 mg PO DAILY 12/30/16 [Last Taken Unknown] Loratadine [Claritin] 10 mg PO DAILY 12/30/16 [Last Taken Unknown] Amlodipine Besylate 10 mg PO DAILY 01/20/17 [Last Taken Unknown] Sulfamethoxazole/Trimethoprim [Bactrim Ds] 1 tab PO BID #28 tab 01/20/17 [Last Taken Unknown] Cholecalciferol [Vitamin D] 400 units PO BID 01/22/17 [Last Taken Unknown] - History of Present History Narrative: HERE TO HAVE HER BLOOD PRESSURE CHECKED AND SAYS SHE CAN FEEL HER HEART POUNDING IN HER HEAD AND HER EARS. SHE HAD RECENT [facility] AND REPORTEDLY WAS STARTED ON A "BLOOD [id number]" BUT FAMILY DOES NOT KNOW WHAT , AND I DO NOT SEE IT IN THE CHART. SHE HAS A HX OF AFIB, CONTROLLED, AND HTN, CONTROLLED, AND ANEMIA , FOR WHICH SHE WAS SEEN IN CLINIC YESTERDAY AND HAD HGB = 9.3 AND SOUNDS LIKE SHE RECEIVED A ARANSEP INJECTION. SHE DENIES SHE HAS ANXIETY BUT HER DAUGHTER THINKS SHE DOES. Review of Systems - Review of Systems Constitutional: Present: See HPI EYE: Present: no symptoms reported ENT: Present: See HPI, other - "FEELS HER HEARTPOUNDING IN HER EARS AND HEAD. " Respiratory: Present: no symptoms reported Cardiology: Present: no symptoms reported Gastrointestinal/Abdominal: Present: no symptoms reported Genitourinary: Present: no symptoms reported Musculoskeletal: Present: no symptoms reported Skin: Present: no symptoms reported Neurological: Present: no symptoms reported Endocrine: Present: no symptoms reported Hematologic/Lymphatic: Present: no symptoms reported Psych: Present: See HPI All Other Systems: All systems neg except as marked - Patient's Past Medical History Patient History - Medical: Diabetes Type 2, Diabetes Type 2 Insulin Dependent, Hypothyroidism, Obesity, Renal Disease, Renal Failure, Other Patient History - Cardiac/Respiratory: Atrial Fibrillation, CHF, Hypertension, Hyperlipidemia, Pulmonary Embolism Patient History - Cancer: No Hx of Cancer Patient History - Surgical Procedures: Cholecystectomy, Total Knee Replacement Patient History - Other: None - Family History Father Family History - Medical: , Diabetes Type 2 Family History - Cardiac/Respiratory: No pertinent hx Mother Family History - Medical: , No pertinent hx Family History - Cardiac/Respiratory: No pertinent hx - Social History Living Situations: other Abuse History: No History of abuse Psych History: No pertinent hx Smoking Status: Never smoker Alcohol Use: none Drug Use: none - Immunizations Immunizations Up to Date: Yes - not sure Hx Pneumococcal Vaccination: Yes History of Influenza Vaccine: Yes Physical Exam - Physical Exam General Appearance: Present: wd/wn, alert, anxious Eye Exam: Normal inspection: bilateral, PERRL: bilateral, EOMI: bilateral Ears, Nose, Throat: Present: normal ENT inspection Neck: Present: normal inspection, nontender. Absent: carotid bruit Respiratory: Present: no respiratory distress, normal breath sounds, no accessory muscle use, chest nontender, lungs clear Cardiovascular/Chest: Present: regular rate, rhythm, no murmur, normal peripheral pulses Peripheral Pulses: N=norm/S=strong/W=weak/B=bound/A=absent: Radial (R): Normal, Radial (L): Normal Back Exam: Present: normal inspection, no CVA tenderness Extremity Exam: Present: normal inspection, non-tender, normal range of motion, no edema Neurological Exam: Present: alert, oriented, no motor/sensory deficits, proced tech II- XII nml as tested, normal cerebellar test. Absent: facial droop, motor weakness , disoriented to person, disoriented to time, disoriented to place, disoriented to situation DTR: N=norm/NB=norm/brisk/A=abs/DD=dull/dimin/HC=hyperactive: Knee (R): Normal, Knee (L): Normal Skin Exam: Present: normal color, warm/dry ED Progress - Results and Orders Patient's Lab Results:: I have reviewed the patient's lab results. Results and Orders: CBC WITH HGB = 9.7, CMP UNCHANGED FROM OLDER LABS WITH CREAT = 2.9 AND GLUCOSE SL. ELEVATED. TSH = WNL. - Vital Signs Patient's Vital Signs:: I have reviewed the patient's vital signs. Vital Signs: Vital Signs 01/22/17 01/23/17 01/23/17 23:29 00:19 00:20 Temperature 36.7 C Pulse Rate 74 68 Respiratory 16 14 Rate Blood Pressure 178/55 164/55 164/55 O2 Sat by Pulse 97 98 Oximetry GOING BACK TO 1000 ON ( WHEN SEEN IN THE [facility]) HER BP HAS BEEN AT 165/60 RANGE. - EKG EKG: NSR EKG read: Interp. by me - CT/Ultrasound CT/Ultrasound Narrative: CT BRAIN / ARGUS = NO ACUTE FINDINGS. - Progress/Reassessment Chief Complaint: Screening, Blood Pressure Progress:: Improved - MORE SLEEPY AFTER THE ATIVAN WHICH I AM NOT INCLINED TO PRESCRIBE FOR HOME USE. Departure - Departure Clinical Impression: Palpitations Disposition: Home Follow Up Needed Condition: Good Instructions: Anemia, Nonspecific, Panic Attacks, Akvj-iu-Ilak, Palpitations, Ojom-ml-[id number] Additional Instructions: I SUSPECT THAT A DEGREE OF ANXIETY IS AT PLAY HERE AND CAN NOT REALLY FIND ANY THING NEW. IF SHE IS CONTINUING TO HAVE THESE PROBLEMS TALK WITH HER PCP TO SEE IF FURTHER EVALUATION IS NEEDED. IT IS HARD TO GET OLD ESPECIALLY WHEN THERE ARE MULTIPLE MEDICAL PROBLEMS LIKE SHE HAS. Referrals: Hao Varma MD [Primary Care Provider] -
[2017-01-23] MEDS ORDERED: LORazepam 1 MG TABLET PO ONE (01:15)
[2017-01-23] MEDS ORDERED: LORazepam 1 MG TABLET ONE (01:19)
[2017-01-23 01:28] LABS: Hemoglobin 9.7 gm/dL (12.5-16.0); Mean Cell Volume 96.7 fl (78-100); Mean Corpuscular Hemoglobin 32.3 pg (27-31); Mean Corpuscular Hgb Conc 33.4 g/dl (32-36); Mean Platelet Volume 11.4 fl (6.0-9.5); Neutrophil # 6.6 K/mm3 (1.3-6.0); Neutrophil % 70.1 % (42-75.0); Platelet Count 294 K/mm3 (150-450); Red Cell Distribution Width 13.5 % (11.5-14.0); White Blood Count 9.4 K/mm3 (4.0-10.5)
[2017-01-23 01:37] LABS: Prothrombin Time (Patient) 10.2 Seconds (9.4-11.4)
[2017-01-23 01:38] LABS: INR 0.98 INR (0.90-1.10)
[2017-01-23 01:50] LABS: BUN/Creatinine Ratio 15.1 (9.0-21.6); Carbon Dioxide 22.3 mmol/L (24-32.6); Potassium 3.9 mmol/L (3.4-4.6)
[2017-01-23 01:51] LABS: Anion Gap 16.6 mmol/L (6.8-13.8); Bilirubin, Total 0.1 mg/dL (0.0-1.1); Ca. Corrected For Albumin 9.6 mg/dL (8.4-10.2); Calcium * 9.1 mg/dL (7.9-10.9); TSH * 2.937 uIU/mL (0.358-3.74); Total Protein 6.6 gm/dL (6.2-8.2)
[2017-01-23 03:10] VITALS: BP 141/53
== END 2017-01-23 03:08 | disposition home or self-care (01) ==
LOC: ER 23:21
DX: R00.2 Palpitations (principal); E11.9 Type 2 diabetes mellitus without complications; Z79.4 Long term (current) use of insulin; E03.9 Hypothyroidism, unspecified; I48.91 Unspecified atrial fibrillation; Z79.01 Long term (current) use of anticoagulants; I50.9 Heart failure, unspecified; I10 Essential (primary) hypertension; E78.5 Hyperlipidemia, unspecified

== ENCOUNTER 2017-01-25 22:23 | Emergency (ER) | payer MEDICARE ==
--- OUTSIDE RECORDS SUMMARY | 2017-01-25 22:44 | XMS REPORT | Continuity of Care Document ---
:1935 Author Organization [facility] ([facility]) Address [address] [place] [address] Phone [phone] Care Team Providers Name Role Phone Chichi Varmao Primary Care Provider [phone] Source Comments This disclosure is being made pursuant to the Care Everywhere program, applicable federal and state laws, and may not contain all informaitonavailable regarding this patient.[facility] ([facility]) Active Allergies and Adverse Reactions Allergen [...] Encounters Date Type Specialty Providers Description 01/05/2017 [facility] and Mamadou Duffy MD Chief Comp: Patient Encounter Vascular Reported Reason For Visit 01/05/2017 [facility] and Sairna Tirado, Chief Comp: Patient Encounter Vascular Reported Reason For Visit 01/05/2017 [facility] Sarina Cancino, Chief Comp: Patient Encounter Vascular Reported Reason For Visit 01/02/2017 - [facility] General Care Bebo Ibanez T, Dx: [...] Doppler, Color Flow and image documentation ( [id number]) I personally viewed the echocardiogram and approve [...] of LVEF 73 Reason For Study 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 URINE CULTURE, REFLEXED (01/03/2017 6:07 AM) Component Value Range Quantitative Culture >100,000 CFU/mL Klebsiella pneumoniae(A) Specimen Culture - Urine, Midstream clean catch Narrative Identification performed by MALDI-TOF mass spectrometry (MS).The performance characteristics of MALDI-TOF MS were determined by the [facility].It has not been cleared orApproved by [...] Maykel Ortega MD CT BRAIN WO CONTRAST ([id number]) (01/03/2017 4:04 AM) Impressions Impression: No acute intracranial findings. This final report is in agreement with the critical and emergent preliminary findings reported by the president sales and marketing masonry instructor. Narrative Procedure: CT BRAIN WO CONTRAST ([id number]) Indication: Hypertension, weak arms, not following commands. [...] Procedure Note Mauricio, Incoming Imaging Results - [place] January 03, 2017 7:04 AM CDT Procedure: CT BRAIN WO CONTRAST ([id number]) Indication: Hypertension, weak arms, not following commands. [...] and emergent preliminary findings reported by the president sales and marketing masonry instructor. CHEST - AP/PA (01/03/2017 3:23 AM) Impressions [...] Procedure Note Mauricio, Incoming Imaging Results - [place] January 03, 2017 6:47 AM CDT Procedure: [...] Neutrophils-Auto Diff 66.5 % Neutrophils-Auto Diff 5120 [id number] /MM3 % Lymphocytes-Auto Diff 21.1 % Lymphocytes-Auto Diff [phone] /MM3 % Monocytes-Auto Diff 7.8 % Monocytes-Auto [...] Abnormality Status --------- ------ CBC (COMPLETE BLOOD COUNT)[[id number]] AbnormalFinal result DIFFERENTIAL[[id number]] Final result Please view results for these [...] Specimen Blood NUC LUNG PERF& VENT AEROSOL ([id number]) (01/02/2017 9:51 PM) Impressions Impression: Three subsegmental mismatched perfusion defects consistent with pulmonary embolism. Contact: Dr. Thuy Allan on 01/02/2017 at 22:20 hrs. This final report is in agreement with the critical and emergent preliminary findings reported by the president sales and marketing masonry instructor. Narrative Procedure: NUC LUNG PERF & VENT AEROSOL ([id number]) Indication: Dyspnea and elevated d-dimer. [employer]iopharmaceuticals: 1. [...] Procedure: NUC LUNG PERF & VENT AEROSOL ([id number]) Indication: Dyspnea and elevated d-dimer. [employer]arm[employer]: 1. [...] and emergent preliminary findings reported by the president sales and marketing masonry instructor.
--- NOTE | 2017-01-25 22:46 | ERNOTE ---
Dyspnea - Date Date of Service: 01/25/17 - General Time Seen by Provider: 01/25/17 22:31 Source: patient, old records - Immun/Allergies/Home Medications Immunizations: IMMUNIZATION HX Immunizations Up to Date Yes History of Influenza Vaccine Yes Hx Pneumococcal Vaccination Yes Allergies/Adverse Reactions: Allergies milk Allergy (Mild, Verified 01/25/17 22:33) Nausea nausea, diarrhea, abd pain erythromycin base [Erythromycin Base] Allergy (Verified 01/25/17 22:33) iron Allergy (Verified 01/25/17 22:33) morphine Allergy (Verified 01/25/17 22:33) Penicillins Allergy (Verified 01/25/17 22:33) cholesterol meds Allergy (Uncoded 01/25/17 22:33) Home Medications: HOME MEDICATIONS hydrALAZINE HCL [Hydralazine HCl] 50 mg PO TID 05/05/16 [Last Taken 05/05/16] Allopurinol [Zyloprim] 100 mg PO BID tablet 10/08/16 [Last Taken Unknown] Furosemide [Lasix] 80 mg PO DAILY 12/30/16 [Last Taken Unknown] Glimepiride [Amaryl] 4 mg PO DAILY 12/30/16 [Last Taken Unknown] Loratadine [Claritin] 10 mg PO DAILY 12/30/16 [Last Taken Unknown] Amlodipine Besylate 10 mg PO DAILY 01/20/17 [Last Taken Unknown] Sulfamethoxazole/Trimethoprim [Bactrim Ds] 1 tab PO BID #28 tab 01/20/17 [Last Taken Unknown] Apixaban [Eliquis] 2.5 mg PO BID 01/23/17 [Last Taken Unknown] Cholecalciferol (Vitamin D3) [Vitamin D3] 2,000 unit PO DAILY 01/25/17 [Last Taken Unknown] Lisinopril [Zestril] 40 mg PO BID 01/25/17 [Last Taken Unknown] - History of Present Illness Narrative: PT BROUGHT IN BY EMS WHEN SHE C/O HAVING SOB AND NUMBNESS AND TINGLING IN HER HANDS AND FEET AND PALPITATIONS WHICH ARE GONE NOW. I SAW HER 2 DAYS FOR SIMILAR COMPLAINTS ( "I FEEL MY HEART POUNDING IN MY HEAD") WITH NEGATIVE W/U . SHE WAS SEEN HERE BY ANOTHER A FEW DAYS EARLIER , 20 JANUARY, FOR "SHORTNESS OF BREATH AND LEG NUMBNESS" WITH W/U ONLY SHOWING INCIDENTAL UTI WITH A KLEBSIELLA THAT WAS SENSITIVE TO THE BACTRIM SHE WAS GIVEN. SHE WAS DIAGNOSED [facility] ON 03 JANUARY WITH PE. AND STARTED ON ELIQUIS. TODAY SHE COMES IN WITHOUT HER DAUGHTER WHO WAS HERE THE LAST TIME. HER DAUGHTER AND I HAD A DISCUSSION THAT SHE SEEMED TO BE DISPLAYING SOME RECENT SIGNS OF DEMENTIA. Review of Systems - Review of Systems Constitutional: Present: See HPI EYE: Present: no symptoms reported ENT: Present: no symptoms reported Respiratory: Present: See HPI, shortness of breath Cardiology: Present: See HPI, palpitations Gastrointestinal/Abdominal: Present: no symptoms reported Genitourinary: Present: no symptoms reported Musculoskeletal: Present: no symptoms reported Skin: Present: no symptoms reported Neurological: Present: See HPI, numbness, tingling Endocrine: Present: no symptoms reported Hematologic/Lymphatic: Present: no symptoms reported Psych: Present: no symptoms reported All Other Systems: All systems neg except as marked - Patient's Past Medical History Patient History - Medical: Diabetes Type 2, Hypothyroidism, Obesity, Renal Disease, Renal Failure, Other Patient History - Cardiac/Respiratory: Atrial Fibrillation, CHF, Hypertension, Hyperlipidemia, Pulmonary Embolism Patient History - Cancer: No Hx of Cancer Patient History - Surgical Procedures: Cholecystectomy, Total Knee Replacement Patient History - Other: None - Family History Father Family History - Medical: , Diabetes Type 2 Family History - Cardiac/Respiratory: No pertinent hx Mother Family History - Medical: , No pertinent hx Family History - Cardiac/Respiratory: No pertinent hx - Social History Living Situations: other Abuse History: No History of abuse Psych History: No pertinent hx Smoking Status: Former smoker Have you smoked in the past 12 months: No Do you dip or chew tobacco: No Alcohol Use: none Drug Use: none - Immunizations Immunizations Up to Date: Yes Hx Pneumococcal Vaccination: Yes History of Influenza Vaccine: Yes Physical Exam - Physical Exam General Appearance: Present: wd/wn, alert, anxious - HYPERVENTILATING AND GETTING UPSET MOSTLY WHEN THERE IS SOMEONE NEAR TO NOTICE. THE REST OF THE TIME QUIET WITH NO COMPLAINTS. Eye Exam: Normal inspection: bilateral, PERRL: bilateral, EOMI: bilateral Ears, Nose, Throat: Present: normal ENT inspection Respiratory: Present: normal breath sounds, no accessory muscle use, chest nontender, lungs clear, other - HYPERVENTILATING. Cardiovascular/Chest: Present: regular rate, rhythm, no murmur, normal peripheral pulses Gastrointestinal/Abdominal: Present: normal bowel sounds, nontender, soft Extremity Exam: Present: normal inspection, no edema Neurological Exam: Present: alert, oriented, other - ANXIOUS Skin Exam: Present: normal color, warm/dry ED Progress - Results and Orders Patient's Lab Results:: I have reviewed the patient's lab results. Results and Orders: CBC NORMAL FOR HER WITH HGB = 9.0 WHERE SHE HAS BEEN. CMP = NL. TROP = NEG. D- DIMER SL ELEVATED AT 1.06 BUT IS LESS THAN IT WAS ON 02 JANUARY (1.72) BEFORE SHE WAS DIAGNOSED WITH P.E. IN [place]. ABGS ON R.A. WITH PH = 7/35 ,PCO2 = 30 AND O2 = 106. CMP SHOWS AN ACUTE ELEVATION OF HER CREATININE SINCE 23 JANUARY = 2.9 TO NOW = 4.7, BUN IS UP ALSO FROM 44 TO 55 TONIGHT. - Vital Signs Patient's Vital Signs:: I have reviewed the patient's vital signs. Vital Signs: Vital Signs 01/25/17 22:27 Temperature 37.0 C Pulse Rate 73 Respiratory 11 L Rate Blood Pressure 174/46 O2 Sat by Pulse 100 Oximetry - EKG EKG: NSR - X-Ray X-Ray #1 X-Ray: chest Interpretation: Interp. by me - NL , NO ACUTE ABNORMALITY - Progress/Reassessment Chief Complaint: Dyspnea Plan - Plan Plan: AT 0245 CALLED TO TALK WITH HOSPITALIST WHO IS BUSY AND WILL CALL BACK . 0349 CALLED REILLY SANG BACK SHE HAS NOT RETURNED MY CALL. I DID GET AHOLD OF HER BUT SHE SAYS SHE NEEDS TO RUN THIS PT BY DR CAZARES BEFORE ACCEPTING HER. REILLY CAME DOWN AND SAW THE PT. AND TALKED WITH DR CAZARES WHO STATES THAT HE THINKS SHE NEEDS TO BE TRANSFERRED TO [facility] THEY HAVE DIALYSIS CAPABILITIY. AT [address] AGUDELO , ER AT [facility], WHO SAYS HE WILL ACCEPT PT. FOR EVALUATION THERE BUT WANTS A NON CONTRAST ABD/PEL CT TO "RULE OUT OBSTRUCTION . 0620 THE ABD/PEL CT/ ARGUS = NO SIGN OF ACUTE PROBLEM OR OBSTRUCTION. I RELAYED THE INFORMATION TO DR AGUDELO AT [facility] WHO NOW ACCEPTS PT IN ER TO ER TRANSFER. PT'S DAUGHTER DID CALL AND SHE WAS MADE AWARE OF PLAN. Departure Clinical Impression: SOB (shortness of breath), Anxiety [id number] renal failure Qualifiers: Acute renal failure type: unspecified Chronic kidney disease stage: unspecified stage Qualified Code(s): N17.9 - Acute kidney failure, unspecified - Departure Disposition: [facility] Condition: Fair
[2017-01-25 22:47] LABS: Hematocrit 27.6 % (37.0-47.0); Mean Cell Volume 97.5 fl (78-100); Mean Corpuscular Hemoglobin 31.8 pg (27-31); Mean Corpuscular Hgb Conc 32.6 g/dl (32-36); Mean Platelet Volume 11.8 fl (6.0-9.5); Neutrophil # 5.2 K/mm3 (1.3-6.0); Neutrophil % 63.6 % (42-75.0); Platelet Count 281 K/mm3 (150-450); Red Blood Count 2.83 M/mm3 (4.2-5.4); Red Cell Distribution Width 13.7 % (11.5-14.0); White Blood Count 8.2 K/mm3 (4.0-10.5)
[2017-01-25 23:15] LABS: TSH * 1.926 uIU/mL (0.358-3.74); Troponin I Less than 0.017 ng/ml (0.00-0.10)
[2017-01-26 02:25] LABS: Albumin * 2.7 gm/dl (3.4-5.0); Anion Gap 18.7 mmol/L (6.8-13.8); BUN/Creatinine Ratio 11.8 (9.0-21.6); Bilirubin, Total 0.3 mg/dL (0.0-1.1); Ca. Corrected For Albumin 8.6 mg/dL (8.4-10.2); Calcium * 7.9 mg/dL (7.9-10.9); Potassium 4.7 mmol/L (3.4-4.6); Total Protein 5.4 gm/dL (6.2-8.2)
[2017-01-26 04:27] LABS: Urine Bilirubin Negative (NEGATIVE); Urine Blood Negative /ul (NEGATIVE); Urine Ketone Negative (NEGATIVE); Urine Nitrite Negative (NEGATIVE); Urine Protein >=300 mg/dL (NEGATIVE); Urine Urobilinogen Normal (NORMAL)
[2017-01-26 04:36] LABS: Urine Appearance Clear; Urine Bacteria 1+; Urine Color Pale Yellow; Urine RBC None Seen /hpf (0-5); Urine WBC 0-5 /hpf (0-5)
[2017-01-26] MEDS ORDERED: NORMAL SALINE 1,000 ML IV PRN (05:13)
[2017-01-26 06:51] VITALS: BP 161/50
== END 2017-01-26 06:44 | disposition short-term general hospital (02) ==
LOC: ER 22:23
DX: R06.02 Shortness of breath (principal); F41.1 Generalized anxiety disorder; N17.9 Acute kidney failure, unspecified; E11.9 Type 2 diabetes mellitus without complications; E03.9 Hypothyroidism, unspecified; I48.91 Unspecified atrial fibrillation; Z79.01 Long term (current) use of anticoagulants; I50.9 Heart failure, unspecified; I10 Essential (primary) hypertension; E78.5 Hyperlipidemia, unspecified

== ENCOUNTER 2017-03-19 11:54 | Emergency (ER) | payer MEDICARE ==
[2017-03-19] MEDS ORDERED: FUROSEMIDE 10 MG/ML VIAL IV ONE ×3 (12:00→12:22)
[2017-03-19] MEDS ORDERED: INSULIN REGULAR HUMAN REC 100 UNITS in NORMAL SALINE 100 ML IV PRN (12:05)
[2017-03-19] MEDS ORDERED: HEPARIN SODIUM,PORCINE/D5W 25,000 UNITS/500 ML BAG IV ONE (12:11)
[2017-03-19] MEDS ORDERED: FUROSEMIDE 10 MG/ML VIAL ONE (12:11)
[2017-03-19] MEDS ORDERED: HEPARIN SODIUM,PORCINE/D5W 25,000 UNITS/500 ML BAG IV SCH (12:15)
[2017-03-19 12:21] LABS: Hematocrit 24.9 % (37.0-47.0); Hemoglobin 8.5 gm/dL (12.5-16.0); Mean Cell Volume 89.6 fl (78-100); Mean Corpuscular Hemoglobin 30.6 pg (27-31); Mean Corpuscular Hgb Conc 34.1 g/dl (32-36); Mean Platelet Volume 13.5 fl (6.0-9.5); Neutrophil # 11.8 K/mm3 (1.3-6.0); Neutrophil % 90.1 % (42-75.0); Platelet Count 166 K/mm3 (150-450); Red Blood Count 2.78 M/mm3 (4.2-5.4); Red Cell Distribution Width 14.2 % (11.5-14.0); White Blood Count 13.1 K/mm3 (4.0-10.5)
[2017-03-19] MEDS ORDERED: INSULIN REGULAR, HUMAN 100 UNITS/ML VIAL IV ONE (12:24)
[2017-03-19] MEDS ORDERED: ALBUTEROL SULFATE 2.5 MG/0.5 ML VIAL.NEB IH ONE (12:24)
[2017-03-19] MEDS ORDERED: INSULIN REGULAR, HUMAN 100 UNITS/ML VIAL ONE (12:24)
[2017-03-19] MEDS ORDERED: ALBUTEROL SULFATE 2.5 MG/3 ML VIAL.NEB IH ONE (12:25)
[2017-03-19] MEDS ORDERED: SODIUM POLYSTYRENE SULFON/SORB 15 G/60 ML BTL PO ONE (12:26)
[2017-03-19] MEDS ORDERED: CALCIUM GLUCONATE 4.65 MEQ/10 ML VIAL IV ONE ×2 (12:27→12:43)
[2017-03-19 12:37] LABS: Prothrombin Time (Patient) 44.7 Seconds (9.4-11.4)
[2017-03-19 12:42] LABS: INR 4.3 INR (0.90-1.10); Partial Thrombolplastin Time 45.3 Seconds (24-32)
[2017-03-19] MEDS ORDERED: SODIUM POLYSTYRENE SULFON/SORB 15 G/60 ML BTL ONE ×2 (12:43→13:04)
[2017-03-19] MEDS ORDERED: ONDANSETRON 4 MG TAB.RAPDIS ONE (13:10)
[2017-03-19 16:38] VITALS: BP 195/55
--- NOTE | 2017-04-24 10:29 | ERNOTE ---
Dyspnea - Date Date of Service: 03/19/17 - General Presenting Symptoms: shortness of breath Time Seen by Provider: 03/19/17 12:00 Source: patient, other - report from Dr baca - Immun/Allergies/Home Medications Immunizations: IMMUNIZATION HX Immunizations Up to Date Yes History of Influenza Vaccine Yes Hx Pneumococcal Vaccination Yes Allergies/Adverse Reactions: Allergies milk Allergy (Mild, Verified 04/16/17 19:24) Nausea nausea, diarrhea, abd pain codeine Allergy (Verified 04/23/17 07:08) erythromycin base [Erythromycin Base] Allergy (Verified 04/16/17 19:24) iron Allergy (Verified 04/16/17 19:24) morphine Allergy (Verified 04/16/17 19:24) Penicillins Allergy (Verified 04/16/17 19:24) sulfamethoxazole [From Bactrim] Allergy (Verified 04/23/17 07:08) trimethoprim [From Bactrim] Allergy (Verified 04/23/17 07:08) cholesterol meds Allergy (Uncoded 04/16/17 19:24) Home Medications: HOME MEDICATIONS Levothyroxine Sodium [Synthroid] 150 mcg PO DAILY 02/26/17 [Last Taken Unknown] Warfarin Sodium [Jantoven] 5 mg PO SUMOWEFRSA 02/26/17 [Last Taken Unknown] Acetaminophen [Tylenol] 650 mg PO Q6H PRN 04/16/17 [Last Taken Unknown] Allopurinol [Zyloprim] 100 mg PO BID 04/16/17 [Last Taken Unknown] Aspirin [Aspirin Enteric Coated] 81 mg PO DAILY 04/16/17 [Last Taken Unknown] Atorvastatin Calcium [Lipitor] 40 mg PO HS 04/16/17 [Last Taken Unknown] Bumetanide 2 mg PO DAILY 04/16/17 [Last Taken Unknown] Ferrous Sulfate 325 mg PO DAILY 04/16/17 [Last Taken Unknown] Insulin Glargine,Hum.rec.anlog [Lantus] 8 units SC HS 04/16/17 [Last Taken Unknown] Levalbuterol HCl [Xopenex] 0.63 mg IH TID PRN 04/16/17 [Last Taken Unknown] Sennosides/Docusate Sodium [Senna-S Tablet] 1 each PO BID PRN 04/16/17 [Last Taken Unknown] Sodium Bicarbonate 650 mg PO BID 04/16/17 [Last Taken Unknown] Mag Oxide/D3/Turmeric Rt Xt [Magnesium-Vit D3-Turmeric Cap] 1 cap PO DAILY 04/18 [Last Taken Unknown] Arginine/Ascorbate Sod/Katerina AC [Arginaid Powder] 1 each PO DAILY 04/19/17 [Last Taken Unknown] Folic Acid 1 mg PO DAILY tablet 04/19/17 [Last Taken Unknown] HYDROcodone/ACETAMINOPHEN [[place] 5-325] 1 each PO Q4H PRN #30 tablet 04/19/17 [ Last Taken Unknown] Levofloxacin [Levaquin] 250 mg PO Q48H #7 tablet 04/19/17 [Last Taken Unknown] Magnesium Oxide [Mag-Ox 400] 400 mg PO DAILY tablet 04/19/17 [Last Taken Unknown] Warfarin Sodium [Coumadin] 2.5 mg PO TuTh@1700 tablet 04/19/17 [Last Taken Unknown] hydrALAZINE HCL [Apresoline] 25 mg PO Q8H tablet 04/19/17 [Last Taken Unknown] - History of Present Illness Narrative: this patient was presented to me by Dr Baca. Dr Baca states she saw this patients lab work that was drawn in her office today and believes patient is in CHF with a possible PE, Hyperkalemia and hyperglycemia. . patient is to be transferred to [facility]. Patient arrived stable, pleasant alert and oriented. she states that she has had some SOB for the last few days and finds it hard to lay flat and breath easily. Date (Duration): 03/19/17 Severity: mild Initiating event: Reports: none Frequency of episodes: Reports: frequent episodes Modifying Factors - (Improves): Reports: nothing Modifying Factors (Worsens): Reports: lying down Associated Symptoms-Dyspnea: Reports: wheezing, weakness Prior Treatment: Reports: recently seen Review of Systems - Review of Systems Constitutional: Present: See HPI, fatigue EYE: Present: no symptoms reported ENT: Present: no symptoms reported Respiratory: Present: See HPI Cardiology: Present: See HPI Gastrointestinal/Abdominal: Present: no symptoms reported Genitourinary: Present: no symptoms reported Musculoskeletal: Present: no symptoms reported Skin: Present: no symptoms reported Neurological: Present: no symptoms reported Endocrine: Present: increased hunger, increased thirst, increased urine Hematologic/Lymphatic: Present: no symptoms reported Psych: Present: no symptoms reported All Other Systems: All systems neg except as marked - Patient's Past Medical History Patient History - Medical: Diabetes Type 2, Hypothyroidism, Obesity, Renal Disease, Renal Failure, Other Patient History - Cardiac/Respiratory: Atrial Fibrillation, CHF, Hypertension, Hyperlipidemia, Pulmonary Embolism Patient History - Cancer: No Hx of Cancer Patient History - Surgical Procedures: Cholecystectomy, Total Knee Replacement Patient History - Other: None - Family History Father Family History - Medical: , Diabetes Type 2 Family History - Cardiac/Respiratory: No pertinent hx Family History - Cancer: No pertinent family hx Mother Family History - Medical: , No pertinent hx Family History - Cardiac/Respiratory: No pertinent hx Family History - Cancer: No pertinent family hx - Social History Living Situations: home Abuse History: No History of abuse Psych History: No pertinent hx Smoking Status: Never smoker Alcohol Use: none Drug Use: none - Immunizations Immunizations Up to Date: Yes Hx Pneumococcal Vaccination: Yes History of Influenza Vaccine: Yes Physical Exam - Physical Exam Narrative: Patient did not tolerate lying flat. She did have bilateral lower extremity swelling. General Appearance: Present: wd/wn, alert, no apparent distress Head Exam: Present: normal inspection, no evidence of injury Eye Exam: Normal inspection: bilateral, PERRL: bilateral, EOMI: bilateral Ears, Nose, Throat: Present: normal ENT inspection, normal pharynx Neck: Present: normal inspection, nontender Respiratory: Present: accessory muscle use, decreased breath sounds, crackles, rales, wheezing Cardiovascular/Chest: Present: regular rate, rhythm, no murmur, normal peripheral pulses Peripheral Pulses: N=norm/S=strong/W=weak/B=bound/A=absent: Dorsalis-pedis (R): Normal, Dorsalis-pedis (L): Normal Gastrointestinal/Abdominal: Present: normal bowel sounds, no organomegaly Extremity Exam: Present: pedal edema Neurological Exam: Present: alert, oriented, normal mood/affect, no motor/ sensory deficits, [employer] II-XII nml as tested Skin Exam: Present: normal color, warm/dry Lymphatic Exam: Present: no adenopathy ED Progress - Results and Orders Patient's Lab Results:: I have reviewed the patient's lab results. - Vital Signs Patient's Vital Signs:: I have reviewed the patient's vital signs. - EKG EKG: NSR EKG read: Reviewed by me - X-Ray X-Ray #1 X-Ray: chest Interpretation: Reviewed by me X-ray Comments: CHF, [place] Congestion, Pulm Edema, possible PE - Progress/Reassessment Chief Complaint: Dyspnea Progress:: Unchanged Plan - Plan Plan: Requesting physician. Dr. Ram. Patient is to be transferred to [facility] in the [facility] for her electrolyte imbalance and possible PE. Departure Clinical Impression: Dyspnea on exertion, Warfarin-induced coagulopathy, Elevated d-dimer Congestive heart failure Qualifiers: Congestive heart failure type: unspecified congestive heart failure type Congestive heart failure chronicity: acute on chronic Qualified Code(s): I50.9 - Heart failure, unspecified CKD (chronic kidney disease) Qualifiers: Chronic kidney disease stage: unspecified stage Qualified Code(s): N18.9 - Chronic kidney disease, unspecified - Departure Disposition: [facility] Condition: Serious Referrals: Hao Varma MD [Primary Care Provider] - - Critical Care Critical Care: 15 min
== END 2017-03-19 13:06 | disposition short-term general hospital (02) ==
LOC: ER 11:54
DX: I50.9 Heart failure, unspecified (principal); N18.9 Chronic kidney disease, unspecified; R06.09 Other forms of dyspnea; R79.1 Abnormal coagulation profile

== ENCOUNTER 2017-04-16 14:27 | Inpatient (IN) | payer MEDICARE ==
[2017-04-16] MEDS ORDERED: ASPIRIN 81 MG TAB.CHEW PO ONE (14:48)
[2017-04-16] MEDS ORDERED: ASPIRIN 81 MG TAB.CHEW ONE (14:50)
--- NOTE | 2017-04-16 14:59 | ERNOTE ---
<Heidy Aldana - Last Filed: 04/16/17 15:14> Chest Pain/Cardiac HPI Date of Service: 04/16/17 Chief Complaint: Chest Pain Time Seen by Provider: 04/16/17 14:42 Source: patient, family, RN notes reviewed, EMS notes reviewed Exam Limitations: no limitations Immunizations: IMMUNIZATION HX Immunizations Up to Date Yes History of Influenza Vaccine Yes Hx Pneumococcal Vaccination Yes Allergies/Adverse Reactions: Allergies milk Allergy (Mild, Verified 04/16/17 14:37) Nausea nausea, diarrhea, abd pain erythromycin base [Erythromycin Base] Allergy (Verified 04/16/17 14:37) iron Allergy (Verified 04/16/17 14:37) morphine Allergy (Verified 04/16/17 14:37) Penicillins Allergy (Verified 04/16/17 14:37) cholesterol meds Allergy (Uncoded 04/16/17 14:37) Home Medications: HOME MEDICATIONS hydrALAZINE HCL [Hydralazine HCl] 10 mg PO TID 05/05/16 [Last Taken 05/05/16] Levothyroxine Sodium [Synthroid] 150 mcg PO DAILY 02/26/17 [Last Taken Unknown] Warfarin Sodium [Coumadin] 2.5 mg PO BRENNER 02/26/17 [Last Taken Unknown] Warfarin Sodium [Jantoven] 5 mg PO MOTUWETHFRSA 02/26/17 [Last Taken Unknown] Acetaminophen [Tylenol] 650 mg PO Q6H 04/16/17 [Last Taken Unknown] Allopurinol [Zyloprim (Allopurinol)] 200 mg PO DAILY 04/16/17 [Last Taken Unknown] Aspirin [Aspirin Enteric Coated] 81 mg PO DAILY 04/16/17 [Last Taken Unknown] Atorvastatin Calcium [Lipitor] 40 mg PO HS 04/16/17 [Last Taken Unknown] Bumetanide 2 mg PO BID 04/16/17 [Last Taken Unknown] Docusate Sodium [Stool Softener] 100 mg PO BID 04/16/17 [Last Taken Unknown] Ferrous Sulfate 325 mg PO BID 04/16/17 [Last Taken Unknown] Folic Acid 1 mg PO DAILY 04/16/17 [Last Taken Unknown] Insulin Glargine,Hum.rec.anlog [Lantus] 8 units SC HS 04/16/17 [Last Taken Unknown] Levalbuterol HCl [Xopenex] 0.63 mg IH Q4H 04/16/17 [Last Taken Unknown] Lidocaine [Lidoderm 5%] 1 patch TP DAILY PRN 04/16/17 [Last Taken Unknown] Magnesium Oxide [Magnesium] 400 mg PO DAILY 04/16/17 [Last Taken Unknown] Sodium Bicarbonate 1,300 mg PO BID 04/16/17 [Last Taken Unknown] guaiFENesin [Mucinex] 2,400 mg PO BID 04/16/17 [Last Taken Unknown] Pain Score #1 Pain Score: 0 Narrative: 81 y/o female brought to the ED from the group home by EMS for chest pain. She was watching TV and dozing in her chair after lunch when she began having midsternal chest pressure that radiated in to her jaw. She was given 1 nitro sublingual with relief of the pressure. She was also given aspirin 81 mg. She currently denies any chest pain or pressure. She was recently hospitalized for pneumonia. She denies any cough but does report shortness of breath that is worse with exertion. Date (Duration): 04/16/17 Time (Timing): 13:00 Timing: resolved prior to arrival Severity/Quality: pressure Location: central Chest Pain Radiation: jaw Activities at Onset: rest Modifying Factors - Improves: Present: nitroglycerin Modifying Factors - Worsens: Present: nothing Nitro Today/Relief: 0.4 mg x 1, provided at home, complete relief Aspirin Treatment Today: 81 mg x 1, provided at home Associated Symptoms: Present: shortness of breath. Absent: headache, dizziness , syncope, cough, diaphoresis, fever/chills, palpitations, heartburn, nausea, vomiting, abdominal pain, weakness, back pain, swelling/lump in chest Prior Chest Pain/Cardiac Workup: Reports: prior chest pain Prior Treatment: Reports: recently seen, treated by physician, recently hospitalized. Denies: currently on antibiotics Review of Systems - Review of Systems Constitutional: Present: recent illness, fatigue, decreased activity level. Absent: fever, malaise EYE: Present: no symptoms reported ENT: Present: nose congestion, nasal drainage Respiratory: Present: shortness of breath. Absent: cough, orthopnea, wheezing Cardiology: Present: chest pain. Absent: syncope, edema Gastrointestinal/Abdominal: Absent: nausea, vomiting, abdominal pain, eating less, drinking less Genitourinary: Present: no symptoms reported Musculoskeletal: Present: no symptoms reported Skin: Present: no symptoms reported Neurological: Absent: headache, dizziness/light-headedness Endocrine: Present: no symptoms reported Hematologic/Lymphatic: Present: easy bruising, easy bleeding Psych: Present: no symptoms reported - Patient's Past Medical History Patient History - Medical: Diabetes Type 2, Hypothyroidism, Obesity, Renal Disease, Renal Failure, Other Patient History - Cardiac/Respiratory: Atrial Fibrillation, CHF, Hypertension, Hyperlipidemia, Pulmonary Embolism, Pneumonia Patient History - Cancer: No Hx of Cancer Patient History - Surgical Procedures: Cholecystectomy Patient History - Other: None LMP (females 10-50): Menopausal - Family History Father Family History - Medical: , Diabetes Type 2 Family History - Cardiac/Respiratory: No pertinent hx Family History - Cancer: No pertinent family hx Mother Family History - Medical: , No pertinent hx Family History - Cardiac/Respiratory: No pertinent hx Family History - Cancer: No pertinent family hx - Social History Living Situations: group home Abuse History: No History of abuse Psych History: No pertinent hx Smoking Status: Former smoker Alcohol Use: none Drug Use: none - Immunizations Immunizations Up to Date: Yes Hx Pneumococcal Vaccination: Yes History of Influenza Vaccine: Yes Physical Exam - Physical Exam General Appearance: Present: wd/wn, alert, no apparent distress Head Exam: Present: normal inspection Eye Exam: Normal inspection: bilateral Ears, Nose, Throat: Present: normal ENT inspection Neck: Present: normal inspection, nontender, supple, full range of motion Respiratory: Present: no respiratory distress, normal breath sounds, no accessory muscle use, crackles - Fine bibasilar crackles present Cardiovascular/Chest: Present: regular rate, rhythm, normal peripheral pulses, systolic murmur Peripheral Pulses: N=norm/S=strong/W=weak/B=bound/A=absent: Dorsalis-pedis (R): Normal, Dorsalis-pedis (L): Normal Gastrointestinal/Abdominal: Present: nontender, nondistended, soft Extremity Exam: Present: normal inspection, non-tender, no edema Neurological Exam: Present: alert, oriented, normal mood/affect, no motor/ sensory deficits Skin Exam: Present: warm/dry, pallor ED Progress - Vital Signs Patient's Vital Signs:: I have reviewed the patient's vital signs. Vital Signs: Vital Signs 04/16/17 14:28 Temperature 36.8 C Pulse Rate 80 Respiratory 16 Rate Blood Pressure 161/58 O2 Sat by Pulse 92 Oximetry - Progress/Reassessment Chief Complaint: Chest Pain Progress:: Unchanged Progress Note-Subjective: 04/16/17 15:16 Patient began having chest pain again shortly after initial exam. Changes noted on EKG and Hgb found to be extremely low at 4.8. Patient turned over to Dr. Hopkins. - Transfer of Care Physician Sign Out: Heidy Aldana Receiving Physician: Kenia Hopkins Expected Disposition: Admit Departure - Departure Clinical Impression: Acute blood loss anemia, Warfarin-induced coagulopathy Chest pain Qualifiers: Chest pain type: unspecified Qualified Code(s): R07.9 - Chest pain, unspecified CKD (chronic kidney disease) Qualifiers: Chronic kidney disease stage: unspecified stage Qualified Code(s): N18.9 - Chronic kidney disease, unspecified Diabetes mellitus Qualifiers: Diabetes mellitus type: type 2 Diabetes mellitus complication status: with unspecified complications Diabetes mellitus chcf insulin use: with chcf use Qualified Code(s): E11.8 - Type 2 diabetes mellitus with unspecified complications Congestive heart failure Qualifiers: Congestive heart failure type: unspecified congestive heart failure type Congestive heart failure chronicity: unspecified congestive heart failure chronicity Qualified Code(s): I50.9 - Heart failure, unspecified Disposition: [facility] Condition: Stable <Kenia Hopkins - Last Filed: 04/16/17 17:30> Chest Pain/Cardiac HPI Immunizations: IMMUNIZATION HX Immunizations Up to Date Yes History of Influenza Vaccine Yes Hx Pneumococcal Vaccination Yes Narrative: Daughter states that she was recently hospitalized for pneumonia, also had uncontrolled DM and required dialysis while in the hospital. Not currently on dialysis. She is currently in the care center for rehab, denies any bleeding, has black stools ('but they put me on iron') Review of Systems - Review of Systems Constitutional: Present: fatigue, decreased activity level Respiratory: Present: shortness of breath Cardiology: Present: chest pain Gastrointestinal/Abdominal: Present: other - black stools Genitourinary: Present: no symptoms reported, other - no hematuria Hematologic/Lymphatic: Present: easy bruising, easy bleeding Physical Exam - Physical Exam General Appearance: Present: wd/wn, alert, no apparent distress Eye Exam: Normal inspection: bilateral Ears, Nose, Throat: Present: normal ENT inspection Respiratory: Present: no respiratory distress, normal breath sounds Cardiovascular/Chest: Present: regular rate, rhythm Neurological Exam: Present: alert, oriented, normal mood/affect Skin Exam: Present: warm/dry, pallor ED Progress - Results and Orders Patient's Lab Results:: I have reviewed the patient's lab results. - Vital Signs Patient's Vital Signs:: I have reviewed the patient's vital signs. Vital Signs: Vital Signs 04/16/17 04/16/17 04/16/17 14:28 14:51 15:07 Temperature 36.8 C Pulse Rate 80 78 86 Respiratory 16 16 Rate Blood Pressure 161/58 162/54 O2 Sat by Pulse 92 96 Oximetry - EKG EKG: NSR, nonspecific ST T wave changes, other - no acute changes EKG read: Interp. by me - X-Ray X-Ray #1 X-Ray: chest - congestive heart failure, right sided pleural effusion, trapped fluid in right mid lung vs pneumonia Interpretation: Reviewed by me - Progress/Reassessment Progress Note-Subjective: 04/16/17 15:10 called lab to discuss getting FFPs ('coags are very off', no number available yet) and RBCs repeat EKG done while patient has chest pain shows ST depression inferior leads and V4-6 04/16/17 15:15 discussed available results with patient and family, chest pain resolved after one nitro, discussed need for transfusion 04/16/17 16:16 blood infusing, no recurrence of chest pain 04/16/17 16:[address] Clay, okay to admit patien
[2017-04-16 15:05] LABS: Mean Cell Volume 92.5 fl (78-100); Mean Corpuscular Hgb Conc 32.4 g/dl (32-36); Mean Platelet Volume 10.5 fl (6.0-9.5); Neutrophil # 9.5 K/mm3 (1.3-6.0); Neutrophil % 84.6 % (42-75.0); Platelet Count 360 K/mm3 (150-450); White Blood Count 11.3 K/mm3 (4.0-10.5)
[2017-04-16 15:06] LABS: Hematocrit 14.8 % (37.0-47.0); Hemoglobin 4.8 gm/dL (12.5-16.0)
[2017-04-16] MEDS ORDERED: NITROGLYCERIN 0.4 MG/TAB BTL SL ONE (15:06)
[2017-04-16 15:11] LABS: ALT 9 U/L (19-67); AST 13 U/L (0-48); Albumin * 2.2 gm/dl (3.4-5.0); Alkaline Phosphatase * 106 U/L (50-170); Bilirubin, Total 0.2 mg/dL (0.0-1.1); Blood Urea Nitrogen 80 mg/dL (3-23); Ca. Corrected For Albumin 9.2 mg/dL (8.4-10.2); Calcium * 8.1 mg/dL (7.9-10.9); Chloride 94 mmol/L (97-106); Glucose * 494 mg/dL (70-110); Potassium 4.2 mmol/L (3.4-4.6); Sodium 132 mmol/L (132-142); Total Protein 5.6 gm/dL (6.2-8.2); Troponin I Less than 0.017 ng/ml (0.00-0.10)
[2017-04-16 15:18] LABS: Anion Gap 16.2 mmol/L (6.8-13.8)
[2017-04-16 15:20] LABS: INR 3.99 INR (0.90-1.10)
[2017-04-16 15:21] LABS: Partial Thrombolplastin Time 66.4 Seconds (24-32)
[2017-04-16 15:22] LABS: Prothrombin Time (Patient) 41.5 Seconds (9.4-11.4)
[2017-04-16] MEDS ORDERED: FUROSEMIDE 10 MG/ML VIAL IV ONE (16:39)
[2017-04-16 17:02] LABS: Urine Bilirubin Negative (NEGATIVE); Urine Blood 50 /ul (NEGATIVE); Urine Ketone Negative (NEGATIVE); Urine Nitrite Negative (NEGATIVE); Urine Protein 100 mg/dL (NEGATIVE); Urine Specific Gravity 1.015 SP.GR. (1.005-1.010); Urine Urobilinogen Normal (NORMAL)
[2017-04-16 17:13] LABS: Urine Appearance Slightly Cloudy; Urine Bacteria 1+; Urine Color Pale Yellow; Urine RBC 0-5 /hpf (0-5); Urine WBC 0-5 /hpf (0-5)
[2017-04-16 17:14] LABS: Urine Yeast Few - 1+
--- NOTE | 2017-04-16 19:54 | HP ---
Chief Complaint - Chief Complaint Date of Service: 04/16/17 Time of Service: 19:53 Chief Complaint: " Chest Pain, Fatigue". Source of HPI: Pt; reliable, ERP report/notes, pt's EMR. History of Present Illness: Mrs. Woodward is a 81-yr-old female pt of Dr. Hao Varma with a PMH of: CKD, DM II, Fibromyalgia, HTN, Hypothyroidism, Osteoarthritis and Pulmonary Embolism. Pt is a shelter care resident at [facility]. She states that 30 minutes after eating lunch, she had chest pressure on her mid -sternum area and it seemed to radiate to her LT jaw and ear. She notified nursing and she was brought to the [facility] ER. She denies having the associated symptoms of n/v, & diaphoresis. However, she had some SOB and reports that lately, she has been feeling more tired. At the ED, she was given Nitro SL & Aspirin and the pain went away. Currently, she is pain free. Her Lab-work at the ED, showed she had critical H/H level of 14.8/4.8. Her WBC was elevated at 11.8 with noted left shift. The UA showed presence of UTI.The CXR showed: moderate RT pleural effusion and findings concerning for CHF as well. Based on this pt's medical history, comorbid conditions, and acute medical conditions stated above, it is reasonable and necessary expectation that this pt needs more than a two midnight stay for diagnostic work-up of RT pleural effusion & for treatment of Pneumonia & UTI and to receive blood transfusions. - Patient's Past Medical History Patient History - Medical: Diabetes Type 2, Hypothyroidism, Obesity, Renal Disease, Renal Failure, Other Patient History - Cardiac/Respiratory: Atrial Fibrillation, CHF, Hypertension, Hyperlipidemia, Pulmonary Embolism, Pneumonia Patient History - Cancer: No Hx of Cancer Patient History - Surgical Procedures: Cholecystectomy Patient History - Other: None, Mormon/Cultural Beliefs affecting care LMP (females 10-50): Menopausal - Family History Father Family History - Medical: , Diabetes Type 2 Family History - Cardiac/Respiratory: No pertinent hx Family History - Cancer: No pertinent family hx Mother Family History - Medical: , No pertinent hx Family History - Cardiac/Respiratory: No pertinent hx Family History - Cancer: No pertinent family hx - Social History Living Situations: [facility] Abuse History: No History of abuse Psych History: No pertinent hx Smoking Status: Former smoker Have you smoked in the past 12 months: No Do you dip or chew tobacco: No Patient requests Smoking Cessation Consult: No Initiate information on Smoking Cessation: No Alcohol Use: none Drug Use: none - Immunizations Immunizations Up to Date: Yes Hx Pneumococcal Vaccination: Yes History of Influenza Vaccine: Yes Review Of Systems (GEN) - Review of Systems Generalized/Overall Review: Present: Weakness, Fatigue. Absent: Chills, Fever EENTM: Absent: Eye Pain, Blurred Vision Respiratory: Present: Shortness of Breath. Absent: Cough, Orthopnea, Stridor Cardiac: Present: Chest Pain. Absent: Edema, Palpitations, Syncope Abdominal: Absent: Nausea, Vomiting, Hematemesis, Abdominal Pain, Constipation Genitourinary: Absent: Burning, Itching, Urgency, Hematuria Musculoskeletal: Absent: Joint Pain, Back Pain, Joint Swelling Neurological: Present: Weakness. Absent: Headache, Anxiety, Depressed Skin: Absent: Dryness, Lesions Endocrine: Present: Intolerance to Cold. Absent: Intolerance to Heat, Increased Hunger, Increased Thirst Misc: All systems neg except as marked Allergies/Adverse Reactions: Allergies Allergy/AdvReac Type Severity Reaction Status Date / Time milk Allergy Mild Nausea Verified 04/16/17 19:24 erythromycin base Allergy Verified 04/16/17 19:24 [Erythromycin Base] iron Allergy Verified 04/16/17 19:24 morphine Allergy Verified 04/16/17 19:24 Penicillins Allergy Verified 04/16/17 19:24 cholesterol meds Allergy Uncoded 04/16/17 19:24 Home Medications: HOME MEDICATIONS Levothyroxine Sodium [Synthroid] 150 mcg PO DAILY 02/26/17 [Last Taken Unknown] Warfarin Sodium [Jantoven] 5 mg PO DAILY 02/26/17 [Last Taken Unknown] Acetaminophen [Tylenol] 650 mg PO Q6H PRN 04/16/17 [Last Taken Unknown] Allopurinol [Zyloprim (Allopurinol)] 200 mg PO DAILY 04/16/17 [Last Taken Unknown] Arginine/Ascorbate Sod/Katerina AC [Arginaid Powder] 1 each PO DAILY 04/16/17 [Last Taken Unknown] Aspirin [Aspirin Enteric Coated] 81 mg PO DAILY 04/16/17 [Last Taken Unknown] Atorvastatin Calcium [Lipitor] 40 mg PO HS 04/16/17 [Last Taken Unknown] Bumetanide 2 mg PO BID 04/16/17 [Last Taken Unknown] Ferrous Sulfate 325 mg PO DAILY 04/16/17 [Last Taken Unknown] Folic Acid 1 mg PO DAILY 04/16/17 [Last Taken Unknown] HYDROcodone/ACETAMINOPHEN [[place] 5-325] 1 tab PO Q4H PRN 04/16/17 [Last Taken Unknown] Insulin Glargine,Hum.rec.anlog [Lantus] 8 units SC HS 04/16/17 [Last Taken Unknown] Levalbuterol HCl [Xopenex] 0.63 mg IH Q4H PRN 04/16/17 [Last Taken Unknown] Magnesium Oxide [Magnesium] 400 mg PO DAILY 04/16/17 [Last Taken Unknown] Sennosides/Docusate Sodium [Senna-S Tablet] 1 each PO BID PRN 04/16/17 [Last Taken Unknown] Sodium Bicarbonate 650 mg PO BID 04/16/17 [Last Taken Unknown] Warfarin Sodium [Jantoven] 2.5 mg PO DAILY 04/16/17 [Last Taken Unknown] hydrALAZINE HCL [Hydralazine HCl] 10 mg PO Q8H 04/16/17 [Last Taken Unknown] Exam - Exam Vital Signs: Vital Signs - Last Taken Temp 36.4 C L 04/16/17 19:06 Pulse 68 04/16/17 19:06 Resp 18 04/16/17 19:06 BP 194/52 04/16/17 19:06 Pulse Ox 100 04/16/17 19:06 Constitutional: Present: Alert, Oriented x3, Cooperative, No distress ENT Exam: Present: normal ENT inspection, hearing grossly normal. Absent: nasal drainage, pharyngeal erythema Eye Exam: bilateral eye: normal inspection, PERRL Neck: Present: full range of motion, supple, normal inspection Back Exam: Present: normal inspection Breasts: Present: Exam deferred Respiratory: Present: lungs clear, No rales, No wheezing Cardiovascular/Chest: Present: regular rate, rhythm, systolic murmur Abdomen: Present: Normal bowel sounds, soft, nontender /Rectal: Present: Exam deferred Extremity: Present: normal range of motion, non-tender, normal inspection Skin Exam: Present: warm/dry, no cyanosis Lymphatic: Present: no adenopathy Neurologic: Present: no motor/sensory deficits, alert, oriented x 3 Appearance: Present: appropriate appearance, appropriate insight Eye contact: Present: cooperative, good eye contact, normal speech Thoughts: Present: normal thought pattern, no apparent hallucination Diagnostic Studies: Abnormal Lab Results 04/16/17 Range/Units 17:00 Urine Protein 100 H (NEGATIVE) mg/dL Urine Glucose (UA) >=1000 H (NEGATIVE) mg/dL Urine Blood 50 H (NEGATIVE) /ul Prot Sulfosalicylic Acd 3+ H (0) mg/dL Ur Leukocyte Esterase 25 H (NEGATIVE) /ul Urine Bacteria 1+ H (NONE) Urine Yeast Few - 1+ H (NONE) Laboratory Results WBC 11.3 K/mm3 (4.0-10.5) H 04/16/17 14:47 RBC 1.60 M/mm3 (4.2-5.4) L 04/16/17 14:47 Hgb 4.8 gm/dL (12.5-16.0) L* D 04/16/17 14:47 Hct 14.8 % (37.0-47.0) L* D 04/16/17 14:47 MCV 92.5 fl (78-100) 04/16/17 14:47 MCH 30.0 pg (27-31) 04/16/17 14:47 MCHC 32.4 g/dl (32-36) 04/16/17 14:47 RDW 16.0 % (11.5-14.0) H 04/16/17 14:47 Plt Count 360 K/mm3 (150-450) 04/16/17 14:47 MPV 10.5 fl (6.0-9.5) H 04/16/17 14:47 Immature Gran % (Auto) 2.40 % (0.001-0.429) H 04/16/17 14:47 Immature Gran # (Auto) 0.27 K/mm3 (0.000-0.0310) H 04/16/17 14:47 Neutrophils % 84.6 % (42-75.0) H 04/16/17 14:47 Lymphocytes % 10.8 % (20-51) L 04/16/17 14:47 Monocytes % 2.0 % (0.0-9) 04/16/17 14:47 Eosinophils % 0.1 % (0.0-3.0) 04/16/17 14:47 Basophils % 0.1 % (0.0-1.0) 04/16/17 14:47 Nucleated RBC % 0.0 k/mm3 (0-1) 04/16/17 14:47 Neutrophils # 9.5 K/mm3 (1.3-6.0) H 04/16/17 14:47 Lymphocytes # 1.2 k/mm3 (1.5-3.5) L 04/16/17 14:47 Monocytes # 0.2 k/mm3 (0.0-1.0) 04/16/17 14:47 Eosinophils # 0.0 k/mm3 (0.0-0.7) 04/16/17 14:47 Absolute Basophils 0.0 k/mm3 (0.0-0.1) 04/16/17 14:47 PT 41.5 Seconds (9.4-11.4) H 04/16/17 14:47 INR (Anticoag Therapy) 3.99 INR (0.90-1.10) H 04/16/17 14:47 PTT (Abe) 66.4 Seconds (24-32) H D 04/16/17 14:47 VBG pH 7.514 (7.32-7.43) H 04/16/17 15:10 Sodium 132 mmol/L (132-142) 04/16/17 14:47 Plasma Sodium 138 mmol/L (130-142) 04/16/17 14:47 Potassium 4.2 mmol/L (3.4-4.6) D 04/16/17 14:47 Chloride 94 mmol/L (97-106) L 04/16/17 14:47 Carbon Dioxide 26.0 mmol/L (24-32.6) 04/16/17 14:47 Anion Gap 16.2 mmol/L (6.8-13.8) H 04/16/17 14:47 BUN 80 mg/dL (3-23) H 04/16/17 14:47 Creatinine 2.58 mg/dL (0.4-1.4) H 04/16/17 14:47 Est GFR (Non-Af Amer) 19 mL/min (60-130) L 04/16/17 14:47 BUN/Creatinine Ratio 31.0 (9.0-21.6) H 04/16/17 14:47 Random Glucose 494 mg/dL (70-110) H 04/16/17 14:47 Calcium 8.1 mg/dL (7.9-10.9) 04/16/17 14:47 Calcium Adj for Albumin 9.2 mg/dL (8.4-10.2) 04/16/17 14:47 Total Bilirubin 0.2 mg/dL (0.0-1.1) 04/16/17 14:47 AST 13 U/L (0-48) 04/16/17 14:47 ALT 9 U/L (19-67) L 04/16/17 14:47 Alkaline Phosphatase 106 U/L (50-170) 04/16/17 14:47 Troponin I Less than 0.017 ng/ml (0.00-0.10) 04/16/17 14:47 Total Protein 5.6 gm/dL (6.2-8.2) L 04/16/17 14:47 Albumin 2.2 gm/dl (3.4-5.0) L 04/16/17 14:47 Urine Color Pale yellow 04/16/17 17:00 Urine Appearance Slightly cloudy 04/16/17 17:00 Urine pH 7.0 pH (5.0-7.0) 04/16/17 17:00 Ur Specific [place] 1.015 SP.GR. (1.005-1.010) 04/16/17 17:00 Urine Protein 100 mg/dL (NEGATIVE) H 04/16/17 17:00 Urine Glucose (UA) >=1000 mg/dL (NEGATIVE) H 04/16/17 17:00 Urine Ketones Negative mg/dL (NEGATIVE) 04/16/17 17:00 Urine Blood 50 /ul (NEGATIVE) H 04/16/17 17:00 Urine Nitrate Negative (NEGATIVE) 04/16/17 17:00 Urine Bilirubin Negative mg/dl (NEGATIVE) 04/16/17 17:00 Prot Sulfosalicylic Acd 3+ mg/dL (0) H 04/16/17 17:00 Urine Urobilinogen Normal EU/dl (NORMAL) 04/16/17 17:00 Ur Leukocyte Esterase 25 /ul (NEGATIVE) H 04/16/17 17:00 Urine RBC 0-5 /hpf (0-5) 04/16/17 17:00 Urine WBC 0-5 /hpf (0-5) 04/16/17 17:00 Ur Epithelial Cells 0-5 /hpf (0-5) 04/16/17 17:00 Urine Bacteria 1+ (NONE) H 04/16/17 17:00 Urine Yeast Few - 1+ (NONE) H 04/16/17 17:00 Urine Culture Comments Culture to follow 04/16/17 17:00 Serum Ketones Negative (NEGATIVE) 04/16/17 14:47 Blood Type O Positive 04/16/17 15:00 Antibody Screen Negative 04/16/17 15:00 Crossmatch See Detail 04/16/17 15:00 Assessment/Plan - Assessment/Plan (1) Pneumonia Assessment: The pt reported SOB and has been feeling more fatigued lately. The CXR showed opacities on the RT mid lung which could be indicative of Pneumonia. Her WBC is slightly elevated at 11.8 with a left shift. Given hx of CKD and DM II, will treat as Pneumonia and cover with Levaquin for now. Monitor CBC in am. Problem: Acute (2) Pleural effusion Assessment: The CXR showed moderate RT pleural effusion.The pleural effusion could likely be from: Pneumonia, Heart Failure or Malignancy. May consider thoracentesis with US guidance for diagnostic and therapuetic purposes. Problem: Acute (3) CHF (congestive heart failure) Assessment: The CXR had findings concerning for CHF. Will add BNP to labs. Monitor closely for fluid overload during the blood transfusion period. Problem: Suspected (4) UTI (urinary tract infection) Assessment: The UA positive for Leukocyte est and 1 + bacteria. Levaquin will be sufficient for now until urine culture results. Problem: Acute (5) Anemia in chronic kidney disease (CKD) Assessment: H & H noted to be 14.8/4.8 and is likely Anemia of CKD. Denies any signs of acute blood loss on ROS & therefore further work-up is unnecessary. Will transfuse with 3 units of PRBCs. Problem: Acute (6) Diabetes Assessment: Continue with accuchecks ACHS. She is already on Lantus 8 units HS. Noted to have blood sugar of 494. Will add SSI insulin. Problem: Chronic (7) HTN (hypertension) Assessment: She is normally on Apresoline 10 mg q 8H. Needs better antihypertensive therapy. The goal is to reduce to SBP<160 DBP</100. Will start Lisinopril 10mg b.i.d. Selected Entries 04/16/17 04/16/17 04/16/17 18:30 18:36 19:06 Pulse Rate 63 63 68 Blood Pressure 208/63 208/63 194/52 Problem: Chronic (8) Hypertensive urgency Assessment: Plan as above. Problem: Acute (9) CKD (chronic kidney disease) Assessment: BUN/CR within her baseline. Continue Sodium Bicarb. Problem: Chronic
[2017-04-16] MEDS ORDERED: LEVOFLOXACIN/D5W 500 MG/100 ML BAG IV ONE (20:45)
[2017-04-16 21:17] LABS: Troponin I 0.033 ng/ml (0.00-0.10)
[2017-04-16] MEDS ORDERED: LEVALBUTEROL HCL 0.63 MG/3 ML AMPUL IH PRN (21:29)
[2017-04-16] MEDS ORDERED: SENNOSIDES/DOCUSATE SODIUM 1 TAB TABLET PO PRN (21:29)
[2017-04-16] MEDS ORDERED: hydrALAZINE HCL 10 MG TABLET ONE (21:47)
[2017-04-16] MEDS ORDERED: INSULIN GLARGINE,HUM.REC.ANLOG 100 UNITS/ML VIAL SC ONE (21:47)
[2017-04-16] MEDS ORDERED: ACETAMINOPHEN 325 MG TABLET PO PRN (21:52)
[2017-04-16] MEDS ORDERED: hydrALAZINE HCL 25 MG TABLET PO SCH (22:00)
[2017-04-16] MEDS: hydrALAZINE HCL 10 MG TABLET PO SCH (22:21)
[2017-04-16] MEDS: BUMETANIDE 1 MG TABLET PO SCH (22:22)
[2017-04-16] MEDS: ATORVASTATIN CALCIUM 40 MG TABLET PO SCH (22:23)
[2017-04-16] MEDS: INSULIN LISPRO 100 UNITS/ML VIAL SC SCH (22:23)
[2017-04-16] MEDS: INSULIN ASPART 100 UNITS/ML VIAL SC SCH (22:23)
[2017-04-16] MEDS: SODIUM BICARBONATE 650 MG TABLET PO SCH (22:24)
[2017-04-16] MEDS: INSULIN GLARGINE,HUM.REC.ANLOG 100 UNITS/ML VIAL SC SCH (22:25)
[2017-04-17] MEDS ORDERED: INSULIN LISPRO 100 UNITS/ML VIAL SC SCH (01:45)
[2017-04-17] MEDS: hydrALAZINE HCL 10 MG TABLET PO SCH (05:19)
[2017-04-17] MEDS ORDERED: LEVOTHYROXINE SODIUM 100 MCG TABLET PO SCH (06:00)
--- NOTE | 2017-04-17 06:36 | PN ---
Subjective - Date and Time Seen Date: 04/17/17 Time: 06:25 Subjective Narrative: Pt examined this am. Is on 3rd of PRBC. B/P remained elevated in the night. Has no complaints. No other issues according to nursing. Objective - Vitals Vitals: Last Vital Signs Temp 37 C 04/17/17 04:59 Pulse 54 L 04/17/17 05:19 Resp 16 04/17/17 04:59 BP 198/65 04/17/17 05:19 Pulse Ox 99 04/17/17 04:59 - Abnormal Lab Findings Abnormal Lab Findings: Abnormal Lab Results 04/16/17 04/16/17 04/16/17 Range/Units 17:00 20:50 22:05 Random Glucose 612 H* (70-110) mg/dL B-Natriuretic Peptide 1488 H (5-550) pg/mL Urine Protein 100 H (NEGATIVE) mg/dL Urine Glucose (UA) >=1000 H (NEGATIVE) mg/dL Urine Blood 50 H (NEGATIVE) /ul Prot Sulfosalicylic Acd 3+ H (0) mg/dL Ur Leukocyte Esterase 25 H (NEGATIVE) /ul Urine Bacteria 1+ H (NONE) Urine Yeast Few - 1+ H (NONE) 04/17/17 Range/Units 00:18 Random Glucose 501 H (70-110) mg/dL B-Natriuretic Peptide (5-550) pg/mL Urine Protein (NEGATIVE) mg/dL Urine Glucose (UA) (NEGATIVE) mg/dL Urine Blood (NEGATIVE) /ul Prot Sulfosalicylic Acd (0) mg/dL Ur Leukocyte Esterase (NEGATIVE) /ul Urine Bacteria (NONE) Urine Yeast (NONE) - Exam Constitutional: Present: Alert, Oriented x3, Cooperative, No distress ENT Exam: Present: normal ENT inspection. Absent: nasal drainage, dry mucous membranes Neck: Present: full range of motion, supple, normal inspection Breasts: Present: Exam deferred Respiratory: Present: decreased breath sounds, No wheezing Cardiovascular/Chest: Present: regular rate, rhythm, no chest tenderness, no edema Abdomen: Present: Normal bowel sounds, soft, nontender /Rectal: Present: Exam deferred Extremity: Present: normal range of motion, no pedal edema Skin Exam: Present: warm/dry, no cyanosis Lymphatic: Present: no adenopathy Neurologic: Present: alert, normal mood/affect, oriented x 3 Appearance: Present: appropriate appearance, appropriate insight Eye contact: Present: cooperative, good eye contact, normal speech Thoughts: Present: normal thought pattern, no apparent hallucination Assessment/Plan - Problems/Diagnosis (1) Pneumonia Problem: Acute Narrative: The pt reported SOB and has been feeling more fatigued lately. The CXR showed opacities on the RT mid lung which could be indicative of Pneumonia. Her WBC is slightly elevated at 11.8 with a left shift. Given hx of CKD and DM II, will treat as Pneumonia and cover with Levaquin for now. Monitor CBC in am. (2) Pleural effusion Problem: Acute Narrative: The CXR showed moderate RT pleural effusion.The pleural effusion could likely be from: Pneumonia, Heart Failure or Malignancy. May consider thoracentesis with US guidance for diagnostic and therapuetic purposes. (3) CHF (congestive heart failure) Problem: Suspected Narrative: The CXR had findings concerning for CHF. Will add BNP to labs. Monitor closely for fluid overload during the blood transfusion period. (4) UTI (urinary tract infection) Problem: Acute Narrative: The UA positive for Leukocyte est and 1 + bacteria. Levaquin will be sufficient for now until urine culture results. (5) Anemia in chronic kidney disease (CKD) Problem: Acute Narrative: H & H noted to be 14.8/4.8 and is likely Anemia of CKD. Denies any signs of acute blood loss on ROS & therefore further work-up is unnecessary. Will transfuse with 3 units of PRBCs. (6) Diabetes Problem: Chronic Narrative: Continue with accuchecks ACHS. She is already on Lantus 8 units HS. Will add SSI insulin. (7) HTN (hypertension) Problem: Chronic Narrative: She is normally on Apresoline 10 mg q 8H. Needs better antihypertensive therapy. The goal is to reduce to SBP<160 DBP</100. Will start Lisinopril 10mg b.i.d (8) Hypertensive urgency Problem: Acute Narrative: Plan as above. (9) CKD (chronic kidney disease) Problem: Chronic Narrative: BUN/CR within her baseline. Continue Sodium Bicarb.
[2017-04-17] MEDS: INSULIN LISPRO 100 UNITS/ML VIAL SC SCH ×4 (07:00→21:14)
[2017-04-17] MEDS: INSULIN ASPART 100 UNITS/ML VIAL SC SCH (08:14)
[2017-04-17 08:19] LABS: Hematocrit 26.2 % (37.0-47.0); Hemoglobin 8.7 gm/dL (12.5-16.0); Mean Cell Volume 86.8 fl (78-100); Mean Corpuscular Hemoglobin 28.8 pg (27-31); Mean Corpuscular Hgb Conc 33.2 g/dl (32-36); Mean Platelet Volume 10.2 fl (6.0-9.5); Neutrophil # 9.9 K/mm3 (1.3-6.0); Neutrophil % 74.3 % (42-75.0); Platelet Count 302 K/mm3 (150-450); Red Blood Count 3.02 M/mm3 (4.2-5.4); White Blood Count 13.3 K/mm3 (4.0-10.5)
[2017-04-17 08:30] LABS: Calcium * 8.1 mg/dL (7.9-10.9); Carbon Dioxide 27.7 mmol/L (24-32.6); Estimated Creat Clear 13.1; Potassium 3.7 mmol/L (3.4-4.6)
[2017-04-17] MEDS: ASPIRIN 81 MG TABLET.DR PO SCH (08:57)
[2017-04-17] MEDS: SODIUM BICARBONATE 650 MG TABLET PO SCH ×2 (08:57→21:16)
[2017-04-17] MEDS: FOLIC ACID 1 MG TABLET PO SCH (08:57)
[2017-04-17] MEDS: BUMETANIDE 1 MG TABLET PO SCH ×2 (08:58→21:16)
[2017-04-17] MEDS: FERROUS SULFATE 325 MG TABLET PO SCH (08:58)
[2017-04-17] MEDS: LISINOPRIL 10 MG TABLET PO SCH ×2 (08:58→21:16)
[2017-04-17] MEDS: ALLOPURINOL 100 MG TABLET PO SCH (08:58)
[2017-04-17] MEDS: ARGININE PO SCH (09:01)
[2017-04-17] MEDS: VITE AC PO SCH (09:01)
[2017-04-17] MEDS: ASCORBATE SOD PO SCH (09:01)
[2017-04-17] MEDS: MAGNESIUM OXIDE 400 MG TABLET PO SCH (09:01)
[2017-04-17] MEDS: hydrALAZINE HCL 25 MG TABLET PO SCH ×2 (11:57→21:17)
[2017-04-17] MEDS ORDERED: hydrALAZINE HCL 25 MG TABLET PO SCH (17:30)
[2017-04-17] MEDS: HYDROcodone/ACETAMINOPHEN 1 EACH TABLET PO PRN (19:15)
[2017-04-17] MEDS ORDERED: LEVOFLOXACIN/D5W 250 MG/50 ML BAG IV SCH (21:00)
[2017-04-17] MEDS: INSULIN GLARGINE,HUM.REC.ANLOG 100 UNITS/ML VIAL SC SCH (21:13)
[2017-04-17] MEDS: ATORVASTATIN CALCIUM 40 MG TABLET PO SCH (21:17)
[2017-04-18] MEDS: LEVOTHYROXINE SODIUM 150 MCG TABLET PO SCH (05:21)
[2017-04-18] MEDS: hydrALAZINE HCL 25 MG TABLET PO SCH ×3 (05:21→20:38)
[2017-04-18 06:30] LABS: Hematocrit 28.4 % (37.0-47.0); Hemoglobin 9.5 gm/dL (12.5-16.0); Mean Cell Volume 87.7 fl (78-100); Mean Corpuscular Hemoglobin 29.3 pg (27-31); Mean Corpuscular Hgb Conc 33.5 g/dl (32-36); Mean Platelet Volume 10.8 fl (6.0-9.5); Neutrophil # 5.8 K/mm3 (1.3-6.0); Platelet Count 340 K/mm3 (150-450); Red Blood Count 3.24 M/mm3 (4.2-5.4); Red Cell Distribution Width 15.3 % (11.5-14.0); White Blood Count 9.7 K/mm3 (4.0-10.5)
[2017-04-18 06:41] LABS: Anion Gap 12.8 mmol/L (6.8-13.8); Calcium * 8.3 mg/dL (7.9-10.9); Carbon Dioxide 27.8 mmol/L (24-32.6); Estimated Creat Clear 13.3; Potassium 3.6 mmol/L (3.4-4.6)
[2017-04-18] MEDS: INSULIN LISPRO 100 UNITS/ML VIAL SC SCH ×4 (06:56→20:25)
[2017-04-18] MEDS: ALLOPURINOL 100 MG TABLET PO SCH (08:28)
[2017-04-18] MEDS: MAGNESIUM OXIDE 400 MG TABLET PO SCH (08:29)
[2017-04-18] MEDS: BUMETANIDE 1 MG TABLET PO SCH (08:29)
[2017-04-18] MEDS: SODIUM BICARBONATE 650 MG TABLET PO SCH ×2 (08:29→20:38)
[2017-04-18] MEDS: LISINOPRIL 10 MG TABLET PO SCH (08:29)
[2017-04-18] MEDS: FOLIC ACID 1 MG TABLET PO SCH (08:29)
[2017-04-18] MEDS: ASPIRIN 81 MG TABLET.DR PO SCH (08:29)
[2017-04-18] MEDS: ASCORBATE SOD PO SCH (08:30)
[2017-04-18] MEDS: ARGININE PO SCH (08:30)
[2017-04-18] MEDS: VITE AC PO SCH (08:30)
[2017-04-18] MEDS: FERROUS SULFATE 325 MG TABLET PO SCH (08:30)
[2017-04-18 11:03] LABS: Prothrombin Time (Patient) 20.1 Seconds (9.4-11.4)
[2017-04-18 11:05] LABS: INR 1.93 INR (0.90-1.10)
--- NOTE | 2017-04-18 12:29 | PN ---
Subjective - Date and Time Seen Date: 04/18/17 Time: 12:29 Subjective Narrative: tired, but overall feeling better. Objective - Review of Systems Generalized/Overall Review: Reports: Weakness, Fatigue. Denies: Chills, Fever EENTM: Reports: No Symptoms Reported Respiratory: Reports: No Symptoms Reported Cardiac: Reports: No Symptoms Reported Abdominal: Reports: No Symptoms Reported Genitourinary Symptoms: Reports: No Symptoms Reported Musculoskeletal Complaints: Reports: No Symptoms Reported Neurological: Reports: No Symptoms Reported Skin: Reports: No Symptoms Reported Endocrine: Reports: No Symptoms Reported Misc: All systems neg except as marked - Vitals Vitals: Last Vital Signs Temp 36.4 C L 04/18/17 10:45 Pulse 58 L 04/18/17 11:27 Resp 20 04/18/17 10:45 BP 149/54 04/18/17 11:27 Pulse Ox 96 04/18/17 10:45 - Abnormal Lab Findings Abnormal Lab Findings: Abnormal Lab Results 04/18/17 04/18/17 04/18/17 Range/Units 06:00 06:00 10:41 RBC 3.24 L (4.2-5.4) M/mm3 Hgb 9.5 L (12.5-16.0) gm/dL Hct 28.4 L (37.0-47.0) % RDW 15.3 H (11.5-14.0) % MPV 10.8 H (6.0-9.5) fl Immature Gran % (Auto) 2.20 H (0.001-0.429) % Immature Gran # (Auto) 0.21 H (0.000-0.0310) K/mm3 Monocytes % 9.7 H (0.0-9) % PT 20.1 H (9.4-11.4) Seconds INR (Anticoag Therapy) 1.93 H (0.90-1.10) INR BUN 85 H (3-23) mg/dL Creatinine 2.43 H (0.4-1.4) mg/dL Est GFR (Non-Af Amer) 20 L (60-130) mL/min BUN/Creatinine Ratio 35.0 H (9.0-21.6) Random Glucose 125 H D (70-110) mg/dL - Exam Constitutional: Present: Cooperative, No distress, Elderly Neck: Present: supple Breasts: Present: Exam deferred Respiratory: Present: no accessory muscle use, decreased breath sounds Cardiovascular/Chest: Present: normal peripheral pulses, regular rate, rhythm, no chest tenderness Abdomen: Present: soft, nontender, nondistended /Rectal: Present: Exam deferred Extremity: Present: non-tender, normal inspection Skin Exam: Present: warm/dry, no cyanosis, pallor Assessment/Plan Plan Narrative: Lung consolidation, Right mid lung - unclear etiology - clinical exam does not appear to be pneumonia. - repeat chest xray this am shows mass like density - CT of chest ordered to evaluate - unable to order with contrast due to elevated creatinine. - await CT results pleural effusion - await evaluation by CT today for further recommendations. - strict I&Os - daily weights UTI - currently on Levaquin 250 mg IV q 48 hours - dosed per pharmacy - probiotics ordered. - preliminary urine culture negative. - await final culture. Anemia - Hgb on admission 4.8 - after 3 units PRBCs, hgb 9.5 - creatinine slowly decreasing - recheck labs in am. - patient feels better after blood transfusion. DM - consistent carb diet - continue lantus insulin - accuchecks QID with sliding scale insulin HTN / HTN urgergency - BP improved. - continue po meds - vital signs q 4 hours CKD - creatinine slowly improving. - recheck labs in am. - adjust home meds as needed Code status: Full Code VTE: none due to severe anemia GI proph: protonix. - Problems/Diagnosis (1) Anemia in chronic kidney disease (CKD) Problem: Acute (2) Congestive heart failure Problem: Acute Qualifiers: Congestive heart failure type: unspecified congestive heart failure type Congestive heart failure chronicity: unspecified congestive heart failure chronicity Qualified Code(s): I50.9 - Heart failure, unspecified (3) Hypertensive urgency Problem: Acute (4) Pleural effusion Problem: Acute (5) UTI (urinary tract infection) Problem: Acute (6) CKD (chronic kidney disease) Problem: Chronic Qualifiers: Chronic kidney disease stage: unspecified stage Qualified Code(s): N18.9 - Chronic kidney disease, unspecified (7) Diabetes Problem: Chronic (8) HTN (hypertension) Problem: Chronic (9) Consolidation lung Problem: Acute
[2017-04-18] MEDS: PANTOPRAZOLE SODIUM 40 MG TABLET.EC PO SCH (15:03)
[2017-04-18] MEDS: SACCHAROMYCES BOULARDII 250 MG CAPSULE PO SCH ×2 (15:03→20:38)
[2017-04-18] MEDS ORDERED: WARFARIN SODIUM 5 MG TABLET PO SCH (17:00)
[2017-04-18] MEDS: INSULIN GLARGINE,HUM.REC.ANLOG 100 UNITS/ML VIAL SC SCH (20:31)
[2017-04-18] MEDS: HYDROcodone/ACETAMINOPHEN 1 EACH TABLET PO PRN (20:36)
[2017-04-18] MEDS: ATORVASTATIN CALCIUM 40 MG TABLET PO SCH (20:39)
[2017-04-19] MEDS: HYDROcodone/ACETAMINOPHEN 1 EACH TABLET PO PRN (00:36)
[2017-04-19] MEDS: hydrALAZINE HCL 25 MG TABLET PO SCH ×2 (05:00→13:11)
[2017-04-19] MEDS: LEVOTHYROXINE SODIUM 150 MCG TABLET PO SCH (05:01)
[2017-04-19 05:46] LABS: Hematocrit 28.7 % (37.0-47.0); Hemoglobin 9.4 gm/dL (12.5-16.0)
[2017-04-19 05:55] LABS: Prothrombin Time (Patient) 16.2 Seconds (9.4-11.4)
[2017-04-19 05:57] LABS: Anion Gap 11.5 mmol/L (6.8-13.8); BUN/Creatinine Ratio 31.3 (9.0-21.6); Calcium * 8.1 mg/dL (7.9-10.9); Carbon Dioxide 29.4 mmol/L (24-32.6); Estimated Creat Clear 12.3; Potassium 3.9 mmol/L (3.4-4.6)
[2017-04-19 06:00] LABS: INR 1.56 INR (0.90-1.10)
[2017-04-19] MEDS: INSULIN LISPRO 100 UNITS/ML VIAL SC SCH ×2 (07:26→13:11)
[2017-04-19] MEDS: PANTOPRAZOLE SODIUM 40 MG TABLET.EC PO SCH (07:27)
[2017-04-19] MEDS: FERROUS SULFATE 325 MG TABLET PO SCH (08:59)
[2017-04-19] MEDS: ALLOPURINOL 100 MG TABLET PO SCH (08:59)
[2017-04-19] MEDS: SODIUM BICARBONATE 650 MG TABLET PO SCH (08:59)
[2017-04-19] MEDS: ARGININE PO SCH (08:59)
[2017-04-19] MEDS: SACCHAROMYCES BOULARDII 250 MG CAPSULE PO SCH (08:59)
[2017-04-19] MEDS: VITE AC PO SCH (08:59)
[2017-04-19] MEDS: ASPIRIN 81 MG TABLET.DR PO SCH (08:59)
[2017-04-19] MEDS: MAGNESIUM OXIDE 400 MG TABLET PO SCH (08:59)
[2017-04-19] MEDS: ASCORBATE SOD PO SCH (08:59)
[2017-04-19] MEDS: FOLIC ACID 1 MG TABLET PO SCH (08:59)
[2017-04-19] MEDS ORDERED: BUMETANIDE 1 MG TABLET PO SCH (09:00)
[2017-04-19 10:44] VITALS: BP 142/64
--- NOTE | 2017-04-19 10:59 | DS ---
(1) Anemia in chronic kidney disease (CKD) Problem: Acute (2) Congestive heart failure Problem: Acute Qualifiers: Congestive heart failure type: unspecified congestive heart failure type Congestive heart failure chronicity: unspecified congestive heart failure chronicity Qualified Code(s): I50.9 - Heart failure, unspecified (3) Hypertensive urgency Problem: Acute (4) Pleural effusion Problem: Acute (5) UTI (urinary tract infection) Problem: Acute (6) CKD (chronic kidney disease) Problem: Chronic Qualifiers: Chronic kidney disease stage: unspecified stage Qualified Code(s): N18.9 - Chronic kidney disease, unspecified (7) Diabetes Problem: Chronic (8) HTN (hypertension) Problem: Chronic (9) Consolidation lung Problem: Acute (10) Pneumonia Problem: Acute Description of Stay: Kandi is an 81 year old female who presented to the ER with c/o CP and fatigue. admitted with severe anemia with hgb 4.8 and pneumonia. started on levaquin IV. transfused 3 units PRBCs. hgb improved to 9.5. anemia due to chronic disease and therefore did not need work up in the acute setting. Chest CT done and confirmed pneumonia, characterized pleural effusion as small. WBC normalized. hgb stabilized. patient was up talking in the hallways prior to discharge. Patient transferred back to [facility] for care home care with PT/OT. Procedures Performed: none Discharge Disposition: [facility] Disposition: [facility] Condition: Undetermined Discharge Activity: Activity as tolerated Discharge Diet: Consistent carbs Discharge Level of Care:: [facility] Therapy: Physicial Therapy, Occupation Therapy Referrals: Hao Varma MD [Primary Care Provider] - Problem Oriented Discharge Instructions to Patient/Family: Anemia, Nonspecific , Blood Transfusion , Chronic Kidney Disease, Community-Acquired Pneumonia, Adult, [id number] Additional Patient Instructions (free text): Fax orders and call report to [facility] at discharge. New Medications: Levaquin - take ALL of prescribed antibiotic. Follow up with Dr. Varma on 04/22/17 at 10 am as previously scheduled. - will need INR and CBC check at this office visit. Will need chest xray in 2 months to document resolution of pneumonia. - order has already been entered. Prescriptions (Any new or edited meds): HYDROcodone/ACETAMINOPHEN [[place] 5-325] 1 each PO Q4H PRN #30 tablet PRN Reason: Pain Levofloxacin [Levaquin] 250 mg PO Q48H #7 tablet Complete Home Medications List: Complete Home Medication List: Levothyroxine Sodium [Synthroid] 150 mcg PO DAILY 02/26/17 Warfarin Sodium [Jantoven] 5 mg PO [id number] 02/26/17 Acetaminophen [Tylenol] 650 mg PO Q6H PRN 04/16/17 Allopurinol [Zyloprim] 100 mg PO BID 04/16/17 Aspirin [Aspirin Enteric Coated] 81 mg PO DAILY 04/16/17 Atorvastatin Calcium [Lipitor] 40 mg PO HS 04/16/17 Bumetanide 2 mg PO DAILY 04/16/17 Ferrous Sulfate 325 mg PO DAILY 04/16/17 Insulin Glargine,Hum.rec.anlog [Lantus] 8 units SC HS 04/16/17 Levalbuterol HCl [Xopenex] 0.63 mg IH TID PRN 04/16/17 Sennosides/Docusate Sodium [Senna-S Tablet] 1 each PO BID PRN 04/16/17 Sodium Bicarbonate 650 mg PO BID 04/16/17 Mag Oxide/D3/Turmeric Rt Xt [Magnesium-Vit D3-Turmeric Cap] 1 cap PO DAILY 04/18 Arginine/Ascorbate Sod/Katerina AC [Arginaid Powder] 1 each PO DAILY 04/19/17 Folic Acid 1 mg PO DAILY tablet 04/19/17 HYDROcodone/ACETAMINOPHEN [[place] 5-325] 1 each PO Q4H PRN #30 tablet 04/19/17 Levofloxacin [Levaquin] 250 mg PO Q48H #7 tablet 04/19/17 Magnesium Oxide [Mag-Ox 400] 400 mg PO DAILY tablet 04/19/17 Warfarin Sodium [Coumadin] 2.5 mg PO TuTh@1700 tablet 04/19/17 hydrALAZINE HCL [Apresoline] 25 mg PO Q8H tablet 04/19/17 Amb Orders for Discharge: CBC Time Frame: 04/22/17, Location: Determined By Patient Prothrombin Time Time Frame: 04/22/17, Location: Determined By Patient Chest PA & Lateral * Time Frame: 2 Months, Location: Determined By Patient
[2017-04-20] MEDS ORDERED: WARFARIN SODIUM 2.5 MG TABLET PO SCH (17:00)
== END 2017-04-19 13:35 | DRG 194 ==
LOC: ER 14:27 → MS 16:27
PROVIDERS: ADMIT Family Medicine; ATTEND Family Medicine
PROC: 30233N1 Transfusion of Nonautologous Red Blood Cells into Peripheral Vein, Percutaneous Approach (ICD-10-PCS; principal; 2017-04-16)
PROC: 4A033R1 Measurement of Arterial Saturation, Peripheral, Percutaneous Approach (ICD-10-PCS; 2017-04-16)
DX: J18.9 Pneumonia, unspecified organism (principal); N39.0 Urinary tract infection, site not specified; I16.0 Hypertensive urgency; I12.9 Hypertensive chronic kidney disease with stage 1 through stage 4 chronic kidney disease, or unspecified chronic kidney disease; I50.9 Heart failure, unspecified; E11.22 Type 2 diabetes mellitus with diabetic chronic kidney disease; N18.9 Chronic kidney disease, unspecified; D63.1 Anemia in chronic kidney disease; E03.9 Hypothyroidism, unspecified; Z79.01 Long term (current) use of anticoagulants; Z79.82 Long term (current) use of aspirin; Z79.4 Long term (current) use of insulin; Z87.891 Personal history of nicotine dependence
CPT/HCPCS: 36415; 36430; 71010; 71250; 80048; 80053; 81001; 82009; 82800; 82947; 83880; 84484; 85014; 85018; 85025; 85610; 85730; 86850; 86900; 87040; 87081; 87086; 93005; 97165; 99285; P9016; P9060

== ENCOUNTER 2017-06-03 22:05 | Emergency (ER) | payer MEDICARE ==
[2017-06-03] MEDS ORDERED: ASPIRIN 81 MG TAB.CHEW PO ONE (22:10)
[2017-06-03] MEDS ORDERED: ASPIRIN 81 MG TAB.CHEW ONE (22:12)
--- NOTE | 2017-06-03 22:27 | ERNOTE ---
Chest Pain/Cardiac HPI Date of Service: 06/03/17 Chief Complaint: Chest Pain Time Seen by Provider: 06/03/17 22:18 Source: patient, family Immunizations: IMMUNIZATION HX Immunizations Up to Date Yes History of Influenza Vaccine No Hx Pneumococcal Vaccination Yes Allergies/Adverse Reactions: Allergies milk Allergy (Mild, Verified 04/16/17 19:24) Nausea nausea, diarrhea, abd pain codeine Allergy (Verified 04/23/17 07:08) erythromycin base [Erythromycin Base] Allergy (Verified 04/16/17 19:24) ferrous sulfate Allergy (Verified 05/03/17 10:04) iron Allergy (Verified 04/16/17 19:24) morphine Allergy (Verified 04/16/17 19:24) Penicillins Allergy (Verified 04/16/17 19:24) sulfamethoxazole [From Bactrim] Allergy (Verified 04/23/17 07:08) trimethoprim [From Bactrim] Allergy (Verified 04/23/17 07:08) cholesterol meds Allergy (Uncoded 04/16/17 19:24) Home Medications: HOME MEDICATIONS Allopurinol [Zyloprim (Allopurinol)] 100 mg PO BID 06/03/17 [Last Taken Unknown] Aspirin [Aspirin Enteric Coated] 81 mg PO DAILY 06/03/17 [Last Taken Unknown] Atorvastatin Calcium 40 mg PO DAILY 06/03/17 [Last Taken Unknown] Bumetanide 2 mg PO DAILY 06/03/17 [Last Taken Unknown] Calcitriol 0.5 mcg PO DAILY 06/03/17 [Last Taken Unknown] Narrative: This is an 81-year-old female who comes to the emergency department complaining of sudden onset of left-sided chest pain approximately 30 minutes prior to arrival. The patient had some nitroglycerin at home which she took and she says resulted in complete pain relief. The patient said that she was having a little bit of trouble breathing when this happened she denies diaphoresis nausea or vomiting. Of importance the patient is being treated for a pulmonary embolism. Her last INR was drawn on Wednesday, 2 days ago, and it was 4. something. She was told to hold the Coumadin for the time being. Nothing makes the pain any worse. The only thing that made it better was taken the nitroglycerin. It is not pleuritic. It's a sharp pain radiating up to the left neck. It does not radiate to the back or down the arm. Review of Systems - Review of Systems Constitutional: Present: no symptoms reported EYE: Present: no symptoms reported ENT: Present: no symptoms reported Respiratory: Present: shortness of breath, cough Cardiology: Present: chest pain Gastrointestinal/Abdominal: Present: no symptoms reported Genitourinary: Present: no symptoms reported Musculoskeletal: Present: other - patient with chronic pain to both shoulders from degenerative joint disease Neurological: Present: no symptoms reported Endocrine: Present: no symptoms reported Hematologic/Lymphatic: Present: no symptoms reported Psych: Present: no symptoms reported All Other Systems: All systems neg except as marked - Patient's Past Medical History Patient History - Medical: Anemia, Arthritis, Diabetes Type 2, Hypothyroidism, Obesity, Renal Disease, Renal Failure, Other Patient History - Cardiac/Respiratory: Atrial Fibrillation, CHF, Hypertension, Hyperlipidemia, Pulmonary Embolism, Pneumonia Patient History - Cancer: No Hx of Cancer Patient History - Surgical Procedures: Cholecystectomy Patient History - Other: None, Anabaptist/Cultural Beliefs affecting care - Family History Father Family History - Medical: , Diabetes Type 2 Family History - Cardiac/Respiratory: No pertinent hx Family History - Cancer: No pertinent family hx Mother Family History - Medical: , No pertinent hx Family History - Cardiac/Respiratory: No pertinent hx Family History - Cancer: No pertinent family hx - Social History Living Situations: other Abuse History: No History of abuse Psych History: No pertinent hx Smoking Status: Never smoker - Immunizations Immunizations Up to Date: Yes Hx Pneumococcal Vaccination: Yes History of Influenza Vaccine: No Physical Exam - Physical Exam General Appearance: Present: wd/wn, alert, no apparent distress, other - somewhat frail woman laying in bed with her eyes closed and no real distress Head Exam: Present: normal inspection, no evidence of injury Eye Exam: Normal inspection: bilateral, PERRL: bilateral, EOMI: bilateral Ears, Nose, Throat: Present: normal ENT inspection, normal pharynx Neck: Present: normal inspection, nontender Respiratory: Present: no respiratory distress, normal breath sounds, no accessory muscle use, chest nontender, lungs clear Cardiovascular/Chest: Present: regular rate, rhythm, other - patient with a 2/6 systolic murmur best heard over the right upper sternal border consistent with aortic stenosis Back Exam: Present: normal inspection, normal range of motion, no CVA tenderness , vertebral tenderness Extremity Exam: Present: normal inspection, non-tender, no edema Neurological Exam: Present: alert, oriented, normal mood/affect, no motor/ sensory deficits Skin Exam: Present: normal color, warm/dry Lymphatic Exam: Present: no adenopathy ED Progress - Vital Signs Vital Signs: Vital Signs 06/03/17 22:12 Temperature 37.0 C Pulse Rate 76 Respiratory 16 Rate Blood Pressure 201/65 O2 Sat by Pulse 98 Oximetry - EKG EKG: NSR EKG read: Interp. by me EKG Comments: Normal sinus rhythm at a rate of 81 normal axis normal intervals and no ST segment changes. A fair amount of artifact is present in lead 3 making interpretation difficult. No definite signs of ischemia - X-Ray X-Ray #1 X-Ray: chest Interpretation: Interp. by me X-ray Comments: Persistent rounded density in the right lung bottom part of the upper segment. Really unchanged from prior. Nose other signs of acute cardiopulmonary disease - Progress/Reassessment Chief Complaint: Chest Pain Plan - Plan Plan: The patient had similar symptoms 2 months ago and was diagnosed with a significant GI bleed. Family is not very happy because at that time and he says "they just gave her blood and never told us why she was bleeding". I explained the same as going on this evening. I explained that she will need to see a GI specialist most likely. The family requests to go to another hospital. I have spoken with [facility] and they do not have a GI specialist available. I spoke with [facility] and they are willing to accept the patient is graciously agreed to accept the patient I have reviewed the prior chart and visit with Dr. Elizabeth as well as this ER visit with her. After relating the family's unhappiness with how things were dealt with last time coupled with possibility of tagged RBC scan and other specific GI tests she agrees transfer is appropriate. Departure Clinical Impression: Anemia, Chest pain - Departure Disposition: Transferred to other hospital Condition: Critical - Critical Care Total Time (mins): 35
[2017-06-03 22:31] LABS: Mean Cell Volume 98.3 fl (78-100); Mean Corpuscular Hemoglobin 31.3 pg (27-31); Mean Corpuscular Hgb Conc 31.8 g/dl (32-36); Mean Platelet Volume 10.4 fl (6.0-9.5); Neutrophil # 7.9 K/mm3 (1.3-6.0); Neutrophil % 68.9 % (42-75.0); Platelet Count 411 K/mm3 (150-450); Red Blood Count 1.79 M/mm3 (4.2-5.4); Red Cell Distribution Width 17.2 % (11.5-14.0); White Blood Count 11.5 K/mm3 (4.0-10.5)
[2017-06-03 22:44] LABS: Prothrombin Time (Patient) 20.7 Seconds (9.0-11.0)
[2017-06-03 22:45] LABS: Hematocrit 17.6 % (37.0-47.0); Hemoglobin 5.6 gm/dL (12.5-16.0); INR 2.05 INR (0.90-1.10); Partial Thrombolplastin Time 40.6 Seconds (24-32)
[2017-06-03] MEDS ORDERED: FUROSEMIDE 10 MG/ML VIAL IV ONE (22:46)
[2017-06-03] MEDS ORDERED: NORMAL SALINE 1,000 ML IV ONE (22:48)
[2017-06-03] MEDS ORDERED: PHYTONADIONE (VIT K1) 10 MG/ML AMPUL IV ONE (22:51)
[2017-06-03 22:56] LABS: Urine Bilirubin Negative (NEGATIVE); Urine Blood Negative /ul (NEGATIVE); Urine Ketone Negative (NEGATIVE); Urine Nitrite Negative (NEGATIVE); Urine Protein 100 mg/dL (NEGATIVE); Urine Urobilinogen Normal (NORMAL)
[2017-06-03 23:04] LABS: ALT 14 U/L (19-67); AST 22 U/L (0-48); Albumin * 2.6 gm/dl (3.4-5.0); Alkaline Phosphatase * 128 U/L (50-170); Anion Gap 15.7 mmol/L (6.8-13.8); BUN/Creatinine Ratio 19.2 (9.0-21.6); Bilirubin, Total 0.1 mg/dL (0.0-1.1); Blood Urea Nitrogen 54 mg/dL (3-23); Ca. Corrected For Albumin 9.9 mg/dL (8.4-10.2); Calcium * 9.1 mg/dL (7.9-10.9); Carbon Dioxide 25.8 mmol/L (24-32.6); Chloride 99 mmol/L (97-106); Glucose * 246 mg/dL (70-110); Potassium 4.5 mmol/L (3.4-4.6); Sodium 136 mmol/L (132-142); Total Protein 6.1 gm/dL (6.2-8.2); Troponin I Less than 0.017 ng/ml (0.00-0.10)
[2017-06-03] MEDS ORDERED: PHYTONADIONE (VIT K1) 10 MG/ML AMPUL ONE (23:11)
[2017-06-03 23:12] LABS: Urine Color Yellow
[2017-06-03 23:13] LABS: Urine Appearance Clear; Urine Bacteria TRACE; Urine RBC None Seen /hpf (0-5); Urine WBC None Seen /hpf (0-5)
[2017-06-03] MEDS ORDERED: PANTOPRAZOLE SODIUM 80 MG in NORMAL SALINE 100 ML IV ONE (23:29)
[2017-06-04 02:21] VITALS: BP 210/52
== END 2017-06-04 01:00 | disposition short-term general hospital (02) ==
LOC: ER 22:05
PROC: 30233K1 Transfusion of Nonautologous Frozen Plasma into Peripheral Vein, Percutaneous Approach (ICD-10-PCS; principal; 2017-06-03)
DX: D64.9 Anemia, unspecified (principal); R07.9 Chest pain, unspecified; M19.90 Unspecified osteoarthritis, unspecified site; E11.9 Type 2 diabetes mellitus without complications; E03.9 Hypothyroidism, unspecified; N19 Unspecified kidney failure
CPT/HCPCS: 36415; 36430; 71010; 80053; 81001; 82272; 84484; 85025; 85610; 85730; 86850; 86900; 87086; 93005; 96374; 96375; 99291; P9016; P9060

== ENCOUNTER 2017-06-30 10:09 | Emergency (ER) | payer MEDICARE ==
[2017-06-30 10:39] VITALS: BP 204/72
== END 2017-06-30 10:40 | disposition home or self-care (01) ==
LOC: ER 10:09
DX: Z13.6 Encounter for screening for cardiovascular disorders (principal)

== ENCOUNTER 2017-06-30 11:14 | Emergency (ER) | payer MEDICARE ==
[2017-06-30 11:23] VITALS: BP 170/58
== END 2017-06-30 11:26 | disposition home or self-care (01) ==
LOC: ER 11:14
DX: Z13.6 Encounter for screening for cardiovascular disorders (principal)

== ENCOUNTER 2017-07-16 16:04 | Emergency (ER) | payer MEDICARE ==
[2017-07-16 16:51] LABS: Hematocrit 35.5 % (37.0-47.0); Hemoglobin 11.8 gm/dL (12.5-16.0); Mean Cell Volume 94.7 fl (78-100); Mean Corpuscular Hemoglobin 31.5 pg (27-31); Mean Corpuscular Hgb Conc 33.2 g/dl (32-36); Mean Platelet Volume 11.6 fl (6.0-9.5); Neutrophil # 5.4 K/mm3 (1.3-6.0); Neutrophil % 79.9 % (42-75.0); Platelet Count 256 K/mm3 (150-450); Red Blood Count 3.75 M/mm3 (4.2-5.4); Red Cell Distribution Width 15.7 % (11.5-14.0); White Blood Count 6.8 K/mm3 (4.0-10.5)
[2017-07-16 17:19] LABS: Albumin * 2.8 gm/dl (3.4-5.0); Anion Gap 13.7 mmol/L (6.8-13.8); BUN/Creatinine Ratio 21.3 (9.0-21.6); Bilirubin, Total 0.3 mg/dL (0.0-1.1); Ca. Corrected For Albumin 9.5 mg/dL (8.4-10.2); Calcium * 8.9 mg/dL (7.9-10.9); Carbon Dioxide 25.5 mmol/L (24-32.6); Potassium 5.2 mmol/L (3.4-4.6); Total Protein 5.9 gm/dL (6.2-8.2); Troponin I 0.019 ng/ml (0.00-0.10)
[2017-07-16 18:28] LABS: Prothrombin Time (Patient) 9.6 Seconds (9.0-11.0)
[2017-07-16 18:29] LABS: INR 0.96 INR (0.90-1.10)
[2017-07-16] MEDS ORDERED: SODIUM POLYSTYRENE SULFON/SORB 15 G/60 ML BTL PO ONE (18:37)
--- NOTE | 2017-07-16 18:54 | ERNOTE ---
Chest Pain/Cardiac HPI Date of Service: 07/16/17 Chief Complaint: Palpitations Time Seen by Provider: 07/16/17 16:38 Source: patient Exam Limitations: no limitations Immunizations: IMMUNIZATION HX Immunizations Up to Date Yes History of Influenza Vaccine No Hx Pneumococcal Vaccination No Allergies/Adverse Reactions: Allergies milk Allergy (Mild, Verified 04/16/17 19:24) Nausea nausea, diarrhea, abd pain codeine Allergy (Verified 04/23/17 07:08) erythromycin base [Erythromycin Base] Allergy (Verified 04/16/17 19:24) ferrous sulfate Allergy (Verified 05/03/17 10:04) iron Allergy (Verified 04/16/17 19:24) morphine Allergy (Verified 04/16/17 19:24) Penicillins Allergy (Verified 04/16/17 19:24) sulfamethoxazole [From Bactrim] Allergy (Verified 04/23/17 07:08) trimethoprim [From Bactrim] Allergy (Verified 04/23/17 07:08) cholesterol meds Allergy (Uncoded 04/16/17 19:24) Home Medications: HOME MEDICATIONS Allopurinol [Zyloprim (Allopurinol)] 100 mg PO BID 06/03/17 [Last Taken Unknown] Aspirin [Aspirin Enteric Coated] 81 mg PO DAILY 06/03/17 [Last Taken Unknown] Atorvastatin Calcium 40 mg PO DAILY 06/03/17 [Last Taken Unknown] Bumetanide 2 mg PO DAILY 06/03/17 [Last Taken Unknown] Calcitriol 0.5 mcg PO DAILY 06/03/17 [Last Taken Unknown] Narrative: Patient presents to the ED for irregular heart rate. She relates she has been feeling her heart beat irregularly for the last day. No Cp or SOB. No fever. She states this comes and goes but nothing really seems to make it better or worse. Eris denies any CP or SOB to me. She tells me that she was told to hold her coumadin but not sure why. No fever. no cough. She tells me she has chronic shoulder pain but nothing that is acute. Timing: intermittent Severity/Quality: mild Location: other - no pain Activities at Onset: none Modifying Factors - Improves: Present: nothing Modifying Factors - Worsens: Present: nothing Associated Symptoms: Present: denies symptoms Prior Treatment: Denies: recently hospitalized Review of Systems - Review of Systems Constitutional: Absent: fever Respiratory: Absent: shortness of breath Cardiology: Absent: chest pain Gastrointestinal/Abdominal: Absent: abdominal pain Genitourinary: Absent: dysuria Musculoskeletal: Present: other - chronic bilateral shoulder pain Skin: Absent: rash Neurological: Absent: weakness - Patient's Past Medical History Patient History - Medical: Anemia, Arthritis, Diabetes Type 2, Hypothyroidism, Obesity, Renal Disease, Renal Failure, Other Patient History - Cardiac/Respiratory: Atrial Fibrillation, CHF, Hypertension, Hyperlipidemia, Pulmonary Embolism, Pneumonia Patient History - Cancer: No Hx of Cancer Patient History - Surgical Procedures: Cholecystectomy Patient History - Other: None, Muslim/Cultural Beliefs affecting care - Family History Father Family History - Medical: , Diabetes Type 2 Family History - Cardiac/Respiratory: No pertinent hx Family History - Cancer: No pertinent family hx Mother Family History - Medical: , No pertinent hx Family History - Cardiac/Respiratory: No pertinent hx Family History - Cancer: No pertinent family hx - Social History Living Situations: home Abuse History: No History of abuse Psych History: No pertinent hx Smoking Status: Never smoker Have you smoked in the past 12 months: No - Immunizations Immunizations Up to Date: Yes Hx Pneumococcal Vaccination: No History of Influenza Vaccine: No Physical Exam - Physical Exam General Appearance: Present: alert, no apparent distress Head Exam: Present: normal inspection, no evidence of injury Eye Exam: Normal inspection: bilateral, PERRL: bilateral Ears, Nose, Throat: Present: normal ENT inspection Neck: Present: normal inspection Respiratory: Present: no respiratory distress, normal breath sounds, no accessory muscle use, lungs clear Cardiovascular/Chest: Present: regular rate, rhythm, normal peripheral pulses Gastrointestinal/Abdominal: Present: normal bowel sounds, nontender, soft Back Exam: Absent: CVA tenderness (R), CVA tenderness (L) Extremity Exam: Present: other - she has some mild edema left arm. Strong pulses. No redness or cellulitis. No calf tenderness. No other specific bone tenderness. No joint redness or swelling. Neurological Exam: Present: alert, normal mood/affect, no motor/sensory deficits Skin Exam: Present: normal color, warm/dry ED Progress - Results and Orders Patient's Lab Results:: I have reviewed the patient's lab results. - Vital Signs Patient's Vital Signs:: I have reviewed the patient's vital signs. Vital Signs: Vital Signs 07/16/17 07/16/17 16:19 16:35 Temperature 36.8 C Pulse Rate 58 L 61 Respiratory 15 22 H Rate Blood Pressure 194/52 182/54 O2 Sat by Pulse 92 95 Oximetry - EKG EKG: NSR EKG read: Interp. by me EKG Comments: NSR rate 60. Non-specific changes, no STEMI. - X-Ray X-Ray #1 X-Ray: chest Interpretation: Interp. by me X-ray Comments: I reviewed official radiology report. - CT/Ultrasound CT/Ultrasound Narrative: I reviewed official radiology report - Progress/Reassessment Chief Complaint: Palpitations Progress Note-Subjective: 07/16/17 19:41 I ordered kayexalate. Patient was insistent on going home. I discussed the case with Dr Whaley, he will see the patient wednesday in the office for a re- check. She tells me she was told to hold her coumadin. This will need to be sorted out. She insists to me on going home. Her palpitations are resolved. Nothing at this time to suggest ACS, PE or aortic dissection, DVT, acute CHF ort other toña acute life threat. Her Cr is mildly increase from before and her Potassium in 0.1 higher than last check ( I ordered Kayexalate). This can be re-checked in the office Wednesday. I discussed warnign signs and reasons to return as well as the need for close f/u. Her reason for presentation, palpitations, have resolved. 07/16/17 19:45 Departure Clinical Impression: Heart palpitations - Departure Disposition: Home self-care Condition: Stable Instructions: Palpitations, [id number] Additional Instructions: Call Dr Whaley' office Wednesday morning, he is going to see you in the office Wednesday for a re-check. Return for pain, weakness, trouble breathing or if your condition worsens or changes in any way. Referrals: Hao Varma MD [Primary Care Provider] -
[2017-07-16] MEDS ORDERED: SODIUM POLYSTYRENE SULFON/SORB 15 G/60 ML BTL ONE (19:09)
[2017-07-16 19:23] LABS: Urine Bilirubin Negative (NEGATIVE); Urine Blood Negative /ul (NEGATIVE); Urine Ketone Negative (NEGATIVE); Urine Nitrite Negative (NEGATIVE); Urine Protein >=300 mg/dL (NEGATIVE); Urine Urobilinogen Normal (NORMAL); Urine pH 7.5 pH (5.0-7.0)
[2017-07-16 19:32] LABS: Urine Appearance Slightly Cloudy; Urine Bacteria TRACE; Urine Color Yellow; Urine RBC None Seen /hpf (0-5); Urine WBC None Seen /hpf (0-5)
[2017-07-16 19:33] LABS: Urine Amorphous Sediment Few - 1+ (NONE-FEW)
[2017-07-16 21:04] VITALS: BP 169/59
== END 2017-07-16 20:05 | disposition home or self-care (01) ==
LOC: ER 16:04
DX: R00.2 Palpitations (principal); R22.32 Localized swelling, mass and lump, left upper limb; Z79.01 Long term (current) use of anticoagulants